=== PATIENT | female | born 1975 | race Caucasian/White ===

== ENCOUNTER → 2018-05-02 08:14 | Outpatient (CLI) | payer OTHER, SELFPAY ==
--- NOTE | 2018-05-02 08:16 | BI_ITS ---
MAMMOGRAPHY - BILATERAL SCREENING 3-D LEE SYNTHESIS REASON FOR EXAM: Female, 42 years old. Bilateral Screening 3-D tomosynthesis PERTINENT HISTORY: No significant family history. TECHNIQUE: 2-D mammograms and 3-D Lee synthesis of the breast (s) were performed. CAD was performed. COMPARISON: 04/03/2017 FINDINGS: The breast composition is composed of scattered fibroglandular density. Scattered benign calcifications are seen. No dense spiculated masses or suspicious microcalcifications are identified. No architectural distortion is identified. There is no skin thickening or retraction. There has been no significant change since the prior study. BI/SCREENING MAMM (CAD), BILAT IMPRESSION: No mammographic signs of malignancy. Routine yearly mammograms recommended. ASSESSMENT CATEGORY: BIRADS Category 1: Negative. A letter regarding these results will be sent to the patient by the facility within 30 days. FOLLOW UP RECOMMENDATION: Yearly follow up mammogram recommended. (A) Approximately 10% of breast cancers are not detected by mammography. A normal mammogram should not delay biopsy of a clinically suspicious abnormality. Electronically Signed: Jeramy Chacon MD at 11:33 EDT , Service support ,
== END ==
PROVIDERS: Family Provider Family Medicine; PCP Family Medicine; Visit Provider Obstetrics & Gynecology
DX: Z12.31 Encounter for screening mammogram for malignant neoplasm of breast (principal)
CPT/HCPCS: 77063; 77067

== ENCOUNTER → 2018-05-16 08:22 | Outpatient (CLI) | payer OTHER, SELFPAY ==
[2018-05-16 09:40] LABS: Absolute Lymphocyte Count 3.07 X10^3/ul (0.83-4.51); Absolute Neutrophil Count 4.6 X10^3/uL (2.0-7.7); Basophil# 0.04 X10^3/uL; Basophil% 0.4 % (0-1); Eosinophil# 0.46 X10^3/uL; Eosinophils% 5.2 % (0-5); Hematocrit 35.5 % (37-47); Hemoglobin 10.1 g/dl (12.0-15.0); Lymphocyte # 3.07 X10^3/ul (4.0); Lymphocyte % 34.5 % (19-41); Mean Corp Hgb Conc 28.5 g/gl (32-36); Mean Corpuscular Hgb 20.6 pg (27.0-32.0); Mean Corpuscular Volume 72.3 fL (81-99); Mean Platelet Vol. 10.3 fl (6.2-12.0); Monocyte# 0.73 X10^3/uL; Monocyte% 8.2 % (0-10); Neutrophil # 4.59 X10^3/uL (2.7-7.7); Neutrophil % 51.6 % (47-70); Platelet Count 353 K/mm3 (150-450); RBC Distribution Width CV 15.6 % (11.6-14.6); RBC Distribution Width SD 41.2 fl (35.1-43.9); Red Blood Count 4.91 M/mm3 (4.2-5.4); White Blood Count 8.9 K/mm3 (4.4-11.0)
[2018-05-16 09:44] LABS: Differential Indicated SCAN CRITERIA MET; POSITIVE COUNT NO; POSITIVE DIFFERENTIAL NO; POSITIVE MORPHOLOGY YES
[2018-05-16 09:52] LABS: Valproic Acid (Depakene) Level 91 ug/mL (50-100)
[2018-05-16 10:05] LABS: AST(SGOT) 17 U/L (15-37); Alanine Aminotransfer ALT/SGPT 17 U/L (13-56); Albumin, Serum 3.1 g/dL (3.2-5.0); Alkaline Phosphatase 41 U/L (45-117); Bilirubin, Direct 0.11 mg/dL (0.00-0.30); Globulin 4.6 g/dL (2.2-4.2); Protein, Total 7.7 g/dL (6.4-8.2)
== END ==
PROVIDERS: Family Provider Family Medicine; PCP Family Medicine; Visit Provider Psychiatry & Neurology Neurology
DX: G25.1 Drug-induced tremor (principal); G40.B09 Juvenile myoclonic epilepsy, not intractable, without status epilepticus
CPT/HCPCS: 36415; 80076; 80164; 85025

== ENCOUNTER → 2018-06-17 17:15 | Outpatient (CLI) | payer OTHER, SELFPAY ==
[2018-06-17 18:01] LABS: Hematocrit 32.9 % (37-47); Hemoglobin 9.5 g/dl (12.0-15.0); Immature Platelet Fraction 2.1 % (1.0-7.9); Mean Corp Hgb Conc 28.9 g/gl (32-36); Mean Corpuscular Volume 72.8 fL (81-99); Mean Platelet Vol. 9.9 fl (6.2-12.0); Platelet Count 310 K/mm3 (150-450); RBC Distribution Width CV 15.5 % (11.6-14.6); RBC Distribution Width SD 41.1 fl (35.1-43.9); RET-HE 19.7 pg (30-35); Red Blood Count 4.52 M/mm3 (4.2-5.4); Reticulocyte Count 1.31 % (0.5-1.5); White Blood Count 9.4 K/mm3 (4.4-11.0)
[2018-06-17 18:02] LABS: Scan Indicated on CBC? Y/N YES- FLAGS NOTED
[2018-06-17 18:30] LABS: Vitamin B12 422 pg/mL (211-911)
[2018-06-17 18:31] LABS: Differential Comment SCANNED
[2018-06-17 18:38] LABS: Ferritin 3 ng/mL (8-252); Iron 15 ug/dL (50-170); Iron Binding Capacity,Total 583 ug/dL (250-450)
== END ==
PROVIDERS: Family Provider Family Medicine; PCP Family Medicine; Visit Provider Family Medicine
DX: D64.9 Anemia, unspecified (principal)
CPT/HCPCS: 36415; 82607; 82728; 83540; 83550; 85027; 85045

== ENCOUNTER → 2018-09-13 13:44 | Outpatient (CLI) | payer OTHER, SELFPAY ==
[2018-09-13 16:15] LABS: Hematocrit 40.6 % (37-47); Mean Corpuscular Hgb 29.1 pg (27.0-32.0); Mean Platelet Vol. 11.9 fl (6.2-12.0); Platelet Count 207 K/mm3 (150-450); RBC Distribution Width CV 14.3 % (11.6-14.6); RBC Distribution Width SD 43.5 fl (35.1-43.9); RET-HE 32.8 pg (30-35); Red Blood Count 4.46 M/mm3 (4.2-5.4); Reticulocyte Count 1.15 % (0.5-1.5); White Blood Count 7.8 K/mm3 (4.4-11.0)
[2018-09-13 16:29] LABS: Scan Indicated on CBC? Y/N NO
[2018-09-13 16:37] LABS: Ferritin 29 ng/mL (8-252); Iron 57 ug/dL (50-170); Iron Binding Capacity,Total 385 ug/dL (250-450); PERCENT IRON SATURATION 14.8 % (15.0-55.0)
== END ==
PROVIDERS: Family Provider Family Medicine; PCP Family Medicine; Referring Provider Family Medicine; Visit Provider Family Medicine
DX: D64.9 Anemia, unspecified (principal)
CPT/HCPCS: 82728; 83540; 83550; 85027; 85045

== ENCOUNTER → 2019-04-15 | Outpatient (CLI) | payer OTHER, SELFPAY ==
--- NOTE | 2019-04-15 08:05 | RAD_ITS ---
STUDY: X-RAY - ESOPHAGUS (BARIUM SWALLOW) WITH FLUOROSCOPY REASON FOR EXAM: Female, 43 years old. Dysphagia for solids. Vomiting. TECHNIQUE: 14 view(s) of the esophagus were obtained following swallowing of barium. FLUOROSCOPY TIME (if supplied): (0:43) minutes/seconds COMPARISON: None. FINDINGS: There is no demonstrated esophageal foreign body. There is no demonstrated stricture or mucosal abnormality. Small hiatal hernia with no evidence of gastroesophageal reflux. The patient ingested a 12 mm tablet of barium.The tablet is trapped in the distal esophagus. Normal visualized aortic arch and descending thoracic aorta. Normal visualized pulmonary parenchyma. Normal visualized osseous structures of the thorax. RAD/Esophagus Only IMPRESSION: Small sliding hiatal hernia without gastroesophageal reflux. The 12 mm tablet of barium is trapped in the distal esophagus. Electronically Signed: Jerzy Barnhart, at 15:52 EDT , Service support ,
== END | disposition home or self-care (01) ==
LOC: RAD 08:01
PROVIDERS: Family Provider Family Medicine; PCP Family Medicine; Referring Provider Family Medicine; Visit Provider Family Medicine
DX: R13.10 Dysphagia, unspecified (principal)
CPT/HCPCS: 74220

== ENCOUNTER → 2019-05-05 | Outpatient (CLI) | payer OTHER, SELFPAY ==
--- NOTE | 2019-05-05 06:56 | BI_ITS ---
MAMMOGRAPHY - BILATERAL SCREENING REASON FOR EXAM: Female, 43 years old. Routine annual screening examination. PERTINENT HISTORY: Non-contributory. TECHNIQUE: Digital bilateral breast lee (3D mammographic acquisition) in the CC and MLO projections. 2-D mediolateral oblique (MLO) and craniocaudad (CC) views of both breasts were obtained. CAD: Full Field Digital Mammography with Computer Added Detection was performed. COMPARISON: Comparison is made with prior study dated May 02, 2018 and April 03, 2017. FINDINGS: Breast Composition: The breasts are heterogeneously dense, which may obscure small masses. There are no dominant masses or suspicious calcifications. Stable small benign-appearing bilateral axillary lymph nodes. Stable 4.7 mm well-defined nodule in the axillary region of the left breast suggestive of a small lymph node. No other significant abnormalities are identified. There has been no significant change since the prior study. BI/SCREEN MAMM (CAD) W/LEE BILAT IMPRESSION: Stable bilateral screening mammogram. Yearly follow-up mammogram recommended. (A) ASSESSMENT CATEGORY: BIRADS Category 2: Benign. A letter regarding these results will be sent to the patient by the facility within 30 days. Approximately 10% of breast cancers are not detected by mammography. A normal mammogram should not delay biopsy of a clinically suspicious abnormality. [id number] Electronically Signed: Jerzy Barnhart, at 8:59 EDT , Service support ,
== END | disposition home or self-care (01) ==
PROVIDERS: Family Provider Family Medicine; PCP Family Medicine; Referring Provider Obstetrics & Gynecology; Visit Provider Obstetrics & Gynecology
DX: Z12.31 Encounter for screening mammogram for malignant neoplasm of breast (principal)
CPT/HCPCS: 77063; 77067

== ENCOUNTER → 2019-05-19 07:53 | Outpatient (CLI) | payer OTHER, SELFPAY ==
[2019-05-19 08:47] LABS: Absolute Lymphocyte Count 3.31 X10^3/uL (0.83-4.51); Absolute Neutrophil Count 2.8 X10^3/uL (2.0-7.7); Basophil# 0.08 X10^3/uL; Basophil% 1.1 % (0-1); Eosinophil# 0.54 X10^3/uL; Eosinophils% 7.5 % (0-5); Hematocrit 42.6 % (37-47); Hemoglobin 13.5 g/dL (12.0-15.0); Lymphocyte # 3.31 X10^3/ul (4.0); Lymphocyte % 45.8 % (19-41); Mean Corp Hgb Conc 31.7 g/dL (32-36); Mean Corpuscular Hgb 29.2 pg (27.0-32.0); Mean Platelet Vol. 11.3 fl (6.2-12.0); Monocyte# 0.53 X10^3/uL; Monocyte% 7.3 % (0-10); NRBC Flagged by Analyzer 0 % (0-5); Neutrophil # 2.76 X10^3/uL (2.7-7.7); Neutrophil % 38.2 % (47-70); Platelet Count 200 K/mm3 (150-450); RBC Distribution Width CV 12.3 % (11.6-14.6); RBC Distribution Width SD 41.7 fl (35.1-43.9); Red Blood Count 4.63 M/mm3 (4.2-5.4); White Blood Count 7.2 K/mm3 (4.4-11.0)
[2019-05-19 09:14] LABS: AST(SGOT) 19 U/L (15-37); Alanine Aminotransfer ALT/SGPT 18 U/L (13-56); Albumin, Serum 3.2 g/dL (3.2-5.0); Alkaline Phosphatase 37 U/L (45-117); Bilirubin, Direct 0.11 mg/dL (0.00-0.30); Globulin 3.9 g/dL (2.2-4.2); Protein, Total 7.1 g/dL (6.4-8.2)
[2019-05-19 09:18] LABS: Valproic Acid (Depakene) Level 93 ug/mL (50-100)
== END ==
PROVIDERS: Family Provider Family Medicine; PCP Family Medicine; Referring Provider Psychiatry & Neurology Neurology; Visit Provider Psychiatry & Neurology Neurology
DX: G40.B09 Juvenile myoclonic epilepsy, not intractable, without status epilepticus (principal)
CPT/HCPCS: 36415; 80076; 80164; 85025

== ENCOUNTER → 2019-05-23 | Outpatient (CLI) | payer OTHER, SELFPAY ==
--- NOTE | 2019-05-23 | EGD_PTH ---
PATIENT: AVINASH WILLSON LOC: [facility] U#:[id number] AGE/SX: 43/F ROOM: RE05/23/[address]: Dr. Axel Higgins MD : 1975 BED: DIS: 05/23/2019 SPEC #: [id number] RECD: 05/23/19 15:22 STATUS: YUMIKO REKrystyna #: [id number] URIEL: 05/23/19 00:[address]: Axel Higgins DEPT: SURGICAL PATHOLOGY RECD BY: Lucy Millan ENTERED: 05/26/19 08:39 SP TYPE: EGD BIOPSY OT DR: Dr. Rakesh Castillo MD [facility] Tissues: Esophageal mucous membrane Procedures: Surgery Specimen Level IV HEADER OPERATION: EGD with biopsy/dilatation PRE-OP DIAGNOSIS: Dysphasia TISSUE SUBMITTED: Distal esophageal biopsies, rule out EE MICROSCOPIC DIAGNOSIS Distal esophageal biopsy: Fragments of squamous epithelium and mucosa with changes consistent with eosinophilic esophagitis. Moderate chronic inflammation. See comment. RADHA:clark 05/27/19 COMMENT Increased number of eosinophils (more than 20 per high power field) noted consistent with eosinophilic esophagitis. MICROSCOPIC DESCRIPTION Slides are reviewed. GROSS DESCRIPTION Received in fixative is one container labeled with the patient's name and designated esophageal biopsy. The specimen consists of multiple irregular fragments of light milan soft tissue that in aggregate measure 1.5 x 0.8 x 0.1 cm. The specimen is totally submitted in one cassette. / RADHA:clark 05/26/19 TC:3 CPT: [id number]
== END | disposition home or self-care (01) ==
LOC: LABSPEC 15:48
PROVIDERS: Family Provider Family Medicine; PCP Family Medicine; Referring Provider Internal Medicine Gastroenterology; Visit Provider Internal Medicine Gastroenterology
DX: R13.10 Dysphagia, unspecified (principal)
CPT/HCPCS: 88305

== ENCOUNTER → 2020-06-01 08:37 | Outpatient (CLI) | payer OTHER, SELFPAY ==
[2020-06-01 14:02] LABS: Cholesterol 210 mg/dL (200); High Density Lipoprotein 75 mg/dL; Triglycerides 156 mg/dL; Very Low Density Lipoprotein 31 mg/dL (5-40)
[2020-06-01 14:06] LABS: Hemoglobin A1c 5.3 % (3.8-5.6)
== END ==
PROVIDERS: PCP Family Medicine; Visit Provider Obstetrics & Gynecology
DX: Z13.1 Encounter for screening for diabetes mellitus (principal); Z13.220 Encounter for screening for lipoid disorders
CPT/HCPCS: 36415; 80061; 83036

== ENCOUNTER → 2020-06-03 | Outpatient (CLI) | payer OTHER, SELFPAY ==
--- NOTE | 2020-06-03 07:05 | BI_ITS ---
MAMMOGRAPHY - BILATERAL SCREENING REASON FOR EXAM: Female, 44 years old. Routine annual screening examination. PERTINENT HISTORY: Non-contributory. TECHNIQUE: Digital bilateral breast lee (3D mammographic acquisition) in the CC and MLO projections. 2-D mediolateral oblique (MLO) and craniocaudad (CC) views of both breasts were obtained. CAD: Full Field Digital Mammography with Computer Added Detection was performed. COMPARISON: Comparison is made with prior examination dated 05/05/2019 and 05/02/2018. FINDINGS: Breast Composition: The breasts are heterogeneously dense, which may obscure small masses. There are no dominant masses or suspicious calcifications. Stable 5 mm well-defined nodule in the axillary region of the left breast this most likely represents a small lymph node. No other significant abnormalities are identified. There has been no significant change since the prior study. BI/SCREEN MAMM (CAD) W/LEE BILAT IMPRESSION: Stable bilateral screening mammogram. Yearly follow-up mammogram recommended. (A) ASSESSMENT CATEGORY: BIRADS Category 2: Benign. A letter regarding these results will be sent to the patient by the facility within 30 days. Approximately 10% of breast cancers are not detected by mammography. A normal mammogram should not delay biopsy of a clinically suspicious abnormality. [id number] Electronically Signed: Jerzy Barnhart, at 8:31 EDT , Service support ,
== END | disposition home or self-care (01) ==
LOC: OPBI 07:02
PROVIDERS: PCP Family Medicine; Referring Provider Obstetrics & Gynecology; Visit Provider Obstetrics & Gynecology
DX: Z12.31 Encounter for screening mammogram for malignant neoplasm of breast (principal)
CPT/HCPCS: 77063; 77067

== ENCOUNTER → 2020-07-07 | Outpatient (CLI) | payer OTHER, SELFPAY | END | disposition home or self-care (01) | LOC: MTDU 07-09 11:46 | PROVIDERS: PCP Family Medicine; Referring Provider Internal Medicine Gastroenterology; Visit Provider Internal Medicine Gastroenterology | DX: Z11.59 Encounter for screening for other viral diseases (principal) | CPT/HCPCS: 87635; C9803; U0003 ==

== ENCOUNTER → 2020-07-22 | Outpatient (CLI) | payer OTHER, SELFPAY ==
[2020-07-22 08:32] LABS: Absolute Lymphocyte Count 3.21 X10^3/uL (0.83-4.51); Absolute Neutrophil Count 5.3 X10^3/uL (2.0-7.7); Basophil# 0.07 X10^3/uL; Basophil% 0.7 % (0-1); Eosinophil# 0.12 X10^3/uL; Eosinophils% 1.3 % (0-5); Hematocrit 39.7 % (37-47); Lymphocyte # 3.21 X10^3/ul (4.0); Mean Corp Hgb Conc 30.2 g/dL (32-36); Mean Corpuscular Hgb 26.3 pg (27.0-32.0); Mean Corpuscular Volume 87.1 fL (81-99); Mean Platelet Vol. 11.6 fl (6.2-12.0); Monocyte% 7.4 % (0-10); NRBC Flagged by Analyzer 0 % (0-5); Neutrophil # 5.32 X10^3/uL (2.7-7.7); Neutrophil % 56.4 % (47-70); Platelet Count 336 K/mm3 (150-450); RBC Distribution Width CV 14.1 % (11.6-14.6); RBC Distribution Width SD 43.7 fl (35.1-43.9); Red Blood Count 4.56 M/mm3 (4.2-5.4); White Blood Count 9.4 K/mm3 (4.4-11.0)
[2020-07-22 09:25] LABS: AST(SGOT) 13 U/L (15-37); Alanine Aminotransfer ALT/SGPT 18 U/L (13-56); Albumin, Serum 3.1 g/dL (3.2-5.0); Alkaline Phosphatase 44 U/L (45-117); Bilirubin, Direct 0.09 mg/dL (0.00-0.30); Globulin 4.2 g/dL (2.2-4.2); Protein, Total 7.3 g/dL (6.4-8.2)
[2020-07-22 09:27] LABS: Valproic Acid (Depakene) Level 82 ug/mL (50-100)
== END | disposition home or self-care (01) ==
PROVIDERS: PCP Family Medicine; Referring Provider Psychiatry & Neurology Neurology; Visit Provider Psychiatry & Neurology Neurology
DX: G25.1 Drug-induced tremor (principal); G40.B09 Juvenile myoclonic epilepsy, not intractable, without status epilepticus; Z79.899 Other long term (current) drug therapy
CPT/HCPCS: 36415; 80076; 80164; 85025

== ENCOUNTER → 2021-07-25 | Outpatient (CLI) | payer OTHER, SELFPAY ==
[2021-07-29 13:25] LABS: HPV APTIMA, High Risk Negative (Negative)
[2021-07-29 13:35] LABS: HPV Reflexed? YES, CHARGE PATIENT
== END | disposition home or self-care (01) ==
LOC: LABSPEC 16:15
PROVIDERS: PCP Family Medicine; Visit Provider Obstetrics & Gynecology
DX: Z12.4 Encounter for screening for malignant neoplasm of cervix (principal)
CPT/HCPCS: 87624; 88175; G0145

== ENCOUNTER → 2021-08-12 06:59 | Outpatient (CLI) | payer OTHER, SELFPAY ==
--- NOTE | 2021-08-12 07:01 | BI_ITS ---
MAMMOGRAPHY - BILATERAL SCREENING REASON FOR EXAM: Female, 45 years old. Routine annual screening examination. PERTINENT HISTORY: Non-contributory. TECHNIQUE: Digital bilateral breast lee (3D mammographic acquisition) in the CC and MLO projections. 2-D mediolateral oblique (MLO) and craniocaudad (CC) views of both breasts were obtained. CAD: Full Field Digital Mammography with Computer Added Detection was performed. COMPARISON: Comparison is made with prior examination dated 06/03/2020 and 05/05/2019. FINDINGS: Breast Composition: The breasts are heterogeneously dense, which may obscure small masses. There are no dominant masses or suspicious calcifications. Stable benign-appearing bilateral axillary lymph nodes. No other significant abnormalities are identified. There has been no significant change since the prior study. BI/SCRN MAMM (CAD)W/LEE BILAT IMPRESSION: Stable bilateral screening mammogram. Yearly follow-up mammogram recommended. (A) ASSESSMENT CATEGORY: BIRADS Category 2: Benign. A letter regarding these results will be sent to the patient by the facility within 30 days. Approximately 10% of breast cancers are not detected by mammography. A normal mammogram should not delay biopsy of a clinically suspicious abnormality. [id number] Electronically Signed: Jerzy Barnhart MD at 8:38 EDT , Service support ,
== END ==
PROVIDERS: PCP Family Medicine; Referring Provider Obstetrics & Gynecology; Visit Provider Obstetrics & Gynecology
DX: Z12.31 Encounter for screening mammogram for malignant neoplasm of breast (principal)
CPT/HCPCS: 77063; 77067

== ENCOUNTER → 2021-10-06 12:16 | Outpatient (CLI) | payer OTHER, SELFPAY ==
[2021-10-06 13:00] LABS: Absolute Lymphocyte Count 3.71 X10^3/uL (0.83-4.51); Absolute Neutrophil Count 6.1 X10^3/uL (2.0-7.7); Basophil# 0.07 X10^3/uL; Basophil% 0.6 % (0-1); Eosinophils% 1.8 % (0-5); Hematocrit 39.4 % (37-47); Hemoglobin 12.4 g/dL (12.0-15.0); Lymphocyte # 3.71 X10^3/ul (0.83-4.51); Lymphocyte % 34.1 % (19-41); Mean Corp Hgb Conc 31.5 g/dL (32-36); Mean Corpuscular Volume 85.8 fL (81-99); Mean Platelet Vol. 10.9 fl (6.2-12.0); Monocyte# 0.79 X10^3/uL; Monocyte% 7.3 % (0-10); NRBC Flagged by Analyzer 0 % (0-5); Neutrophil # 6.08 X10^3/uL (2.7-7.7); Neutrophil % 55.9 % (47-70); Platelet Count 294 K/mm3 (150-450); RBC Distribution Width CV 13.1 % (11.6-14.6); RBC Distribution Width SD 40.3 fl (35.1-43.9); Red Blood Count 4.59 M/mm3 (4.2-5.4); White Blood Count 10.9 K/mm3 (4.4-11.0)
[2021-10-06 13:36] LABS: Valproic Acid (Depakene) Level 72 ug/mL (50-100)
[2021-10-06 13:39] LABS: AST(SGOT) 14 U/L (15-37); Alanine Aminotransfer ALT/SGPT 25 U/L (13-56); Alkaline Phosphatase 45 U/L (45-117); Globulin 4.4 g/dL (2.2-4.2); Protein, Total 7.4 g/dL (6.4-8.2)
== END ==
PROVIDERS: PCP Family Medicine; Visit Provider Psychiatry & Neurology Neurology
DX: G40.B09 Juvenile myoclonic epilepsy, not intractable, without status epilepticus (principal)
CPT/HCPCS: 36415; 80076; 80164; 85025

== ENCOUNTER → 2022-08-28 | Outpatient (CLI) | payer OTHER, SELFPAY ==
--- NOTE | 2022-08-28 07:15 | BI_ITS ---
MAMMOGRAPHY - BILATERAL SCREENING REASON FOR EXAM: Female, 46 years old. Routine annual screening examination. PERTINENT HISTORY: Non-contributory. TECHNIQUE: Digital bilateral breast lee (3D mammographic acquisition) in the CC and MLO projections. 2-D mediolateral oblique (MLO) and craniocaudad (CC) views of both breasts were obtained. CAD: Full Field Digital Mammography with Computer Added Detection was performed. COMPARISON: Mammogram from 08/12/2021, 06/03/2020. FINDINGS: Breast Composition: The breasts are heterogeneously dense, which may obscure small masses. There are no dominant masses or suspicious calcifications. Stable benign-appearing bilateral lymph nodes. Stable benign-appearing scattered calcifications. No other significant abnormalities are identified. There has been no significant change since the prior study. BI/SCRN MAMM (CAD)W/LEE BILAT IMPRESSION: Stable bilateral screening mammogram. Yearly follow-up mammogram recommended. (A) ASSESSMENT CATEGORY: BIRADS Category 2: Benign. A letter regarding these results will be sent to the patient by the facility within 30 days. Approximately 10% of breast cancers are not detected by mammography. A normal mammogram should not delay biopsy of a clinically suspicious abnormality. Electronically Signed: Antonio Wilson, at 11:58 EST ,
== END | disposition home or self-care (01) ==
LOC: OPBI 07:13
PROVIDERS: PCP Family Medicine; Visit Provider Obstetrics & Gynecology
DX: Z12.31 Encounter for screening mammogram for malignant neoplasm of breast (principal)
CPT/HCPCS: 77063; 77067

== ENCOUNTER → 2022-10-25 | Outpatient (CLI) | payer OTHER, SELFPAY ==
[2022-10-25 17:03] LABS: Absolute Lymphocyte Count 4.14 X10^3/uL (0.83-4.51); Absolute Neutrophil Count 3.7 X10^3/uL (2.0-7.7); Basophil# 0.06 X10^3/uL; Basophil% 0.7 % (0-1); Eosinophil# 0.08 X10^3/uL; Eosinophils% 0.9 % (0-5); Hematocrit 32.9 % (37-47); Hemoglobin 9.5 g/dL (12.0-15.0); Lymphocyte # 4.14 X10^3/ul (0.83-4.51); Lymphocyte % 45.6 % (19-41); Mean Corp Hgb Conc 28.9 g/dL (32-36); Mean Corpuscular Hgb 20.9 pg (27.0-32.0); Mean Corpuscular Volume 72.3 fL (81-99); Mean Platelet Vol. 10.1 fl (6.2-12.0); Monocyte# 1.04 X10^3/uL; Monocyte% 11.5 % (0-10); NRBC Flagged by Analyzer 0 % (0-5); Neutrophil # 3.74 X10^3/uL (2.7-7.7); Neutrophil % 41.1 % (47-70); Platelet Count 350 K/mm3 (150-450); RBC Distribution Width CV 15.8 % (11.6-14.6); RBC Distribution Width SD 40.2 fl (35.1-43.9); Red Blood Count 4.55 M/mm3 (4.2-5.4); White Blood Count 9.1 K/mm3 (4.4-11.0)
[2022-10-25 17:47] LABS: Valproic Acid (Depakene) Level 60 ug/mL (50-100)
[2022-10-25 17:48] LABS: AST(SGOT) 16 U/L (15-37); Alanine Aminotransfer ALT/SGPT 16 U/L (13-56); Albumin, Serum 3.1 g/dL (3.2-5.0); Alkaline Phosphatase 36 U/L (45-117); Bilirubin, Direct 0.09 mg/dL (0.00-0.30); Globulin 4.3 g/dL (2.2-4.2); Protein, Total 7.4 g/dL (6.4-8.2)
== END | disposition home or self-care (01) ==
LOC: LAB 16:39
PROVIDERS: PCP Family Medicine; Visit Provider Physician Assistant
DX: G40.B09 Juvenile myoclonic epilepsy, not intractable, without status epilepticus (principal)
CPT/HCPCS: 36415; 80076; 80164; 85025

== ENCOUNTER → 2024-07-21 | Outpatient (CLI) | payer OTHER, SELFPAY ==
--- NOTE | 2024-07-21 07:16 | BI_ITS ---
MAMMOGRAPHY - BILATERAL SCREENING 3-D TOMOSYNTHESIS REASON FOR EXAM: Female, 48 years old. SCREENING PERTINENT HISTORY: No significant family history. TECHNIQUE: 2-D mammograms and 3-D Tomosynthesis of the breast (s) were performed. CAD was performed. COMPARISON: 08/28/2022 FINDINGS: The breast composition is heterogeneously dense that can obscure small breast masses. Scattered benign calcifications are seen. No dense spiculated masses or suspicious microcalcifications are identified. No architectural distortion is identified. There is no skin thickening or retraction. There has been no significant change since the prior study. BI/SCRN MAMM (CAD)W/LEE BILAT IMPRESSION: No mammographic signs of malignancy. Routine yearly mammograms recommended. ASSESSMENT CATEGORY: BIRADS Category 1: Negative. A letter regarding these results will be sent to the patient by the facility within 30 days. FOLLOW UP RECOMMENDATION: Yearly follow up mammogram recommended. (A) Approximately 10% of breast cancers are not detected by mammography. A normal mammogram should not delay biopsy of a clinically suspicious abnormality. Electronically Signed: Robin Heredia MD at 8:10 EDT ,
== END | disposition home or self-care (01) ==
LOC: OPBI 07:13
PROVIDERS: PCP Family Medicine; Referring Provider Advanced Practice Midwife; Visit Provider Advanced Practice Midwife
DX: Z12.31 Encounter for screening mammogram for malignant neoplasm of breast (principal)
CPT/HCPCS: 77063; 77067

== ENCOUNTER → 2025-02-12 | Outpatient (CLI) | payer OTHER, SELFPAY ==
[2025-02-12 08:15] LABS: Absolute Lymphocyte Count 3.28 X10^3/uL (0.83-4.51); Absolute Neutrophil Count 2.9 X10^3/uL (2.0-7.7); Basophil# 0.07 X10^3/uL; Eosinophil# 0.11 X10^3/uL; Eosinophils% 1.6 % (0-5); Hematocrit 35.6 % (37-47); Hemoglobin 10.8 g/dL (12.0-15.0); Lymphocyte # 3.28 X10^3/ul (0.83-4.51); Lymphocyte % 46.9 % (19-41); Mean Corp Hgb Conc 30.3 g/dL (32-36); Mean Corpuscular Hgb 22.6 pg (27.0-32.0); Mean Corpuscular Volume 74.5 fL (81-99); Mean Platelet Vol. 10.9 fl (6.2-12.0); Monocyte# 0.58 X10^3/uL; Monocyte% 8.3 % (0-10); NRBC Flagged by Analyzer 0 % (0-5); Neutrophil # 2.94 X10^3/uL (2.7-7.7); Neutrophil % 41.9 % (47-70); Platelet Count 324 K/mm3 (150-450); RBC Distribution Width CV 16.4 % (11.6-14.6); RBC Distribution Width SD 44.2 fl (35.1-43.9); Red Blood Count 4.78 M/mm3 (4.2-5.4)
[2025-02-12 08:57] LABS: Valproic Acid (Depakene) Level 77 ug/mL (50-100)
[2025-02-12 09:00] LABS: ALB/GLOB Ratio 1.3 RATIO (0.9-2.4); AST(SGOT) 111 U/L (<=31); Alanine Aminotransfer ALT/SGPT 109 U/L (<=34); Albumin, Serum 4.4 g/dL (3.5-5.0); Alkaline Phosphatase 89 U/L (35-104); Anion Gap 14 (5-15); BUN 10 mg/dL (4-19); BUN/Creat Ratio 18.5 RATIO (10-20); Carbon Dioxide 23.5 mmol/L (21.0-32.0); Chloride 104 mmol/L (98-108); Creatinine, Serum 0.56 mg/dL (0.70-1.20); EST Glomerular Filtration Rate 111 (>60); Globulin 3.3 g/dL (2.2-4.2); Glucose 161 mg/dL (70-99); Potassium 4.1 mmol/L (3.3-5.1); Protein, Total 7.7 g/dL (5.9-8.4); Sodium Level 141 mmol/L (133-145); Total Bilirubin 0.57 mg/dL (0.00-1.30)
== END | disposition home or self-care (01) ==
PROVIDERS: PCP Family Medicine; Referring Provider Psychiatry & Neurology Neurology; Visit Provider Psychiatry & Neurology Neurology
DX: G40.B09 Juvenile myoclonic epilepsy, not intractable, without status epilepticus (principal)
CPT/HCPCS: 36415; 80053; 80164; 85025

== ENCOUNTER → 2025-05-14 | Outpatient (CLI) | payer OTHER, SELFPAY ==
--- OUTSIDE RECORDS SUMMARY | 2025-05-14 07:06 | XMS RPT_ITS | CCD ---
Author Organization [facility] Inform ion Partnership [facility] Care Team Providers Care Legal Recruiter Name Role Phone Margy Castillo MD Primary Care Provider CARLY JACKSON Attending Unavailable KARYN ARRIAZA Referring Unavailable MARGY CASTILLO Primary Care Unavailkirsten Castillo MD, Margy Lim Primary Care Provider Jonathan PATEL, Dr. Cameron Primary Care Provider Jairo PATEL, Dr. Meza Attending Provider Unavailab Barbara PATEL, Dr. Meza Referring Provider Unavailab Derrick Jimenez Referring Unavailable Margy Castillo Primary Care Unavailable Derrick Gill Attending Unavailable Margy Castillo Primary Care Unavailable Derrick Gill Attending Unavailable Margy Castillo Primary Care Unavailable Karyn Arriaza Attending Unavailable Karyn Arriaza Referring Unavailable Allergies Allergy Classification Reported Allergen(s) Allergy Type Date of Onset Reaction(s) Facility (4 sources) Cat; Translations: [CATS] Propensity to adverse reactions 06-24-2002 [facility] Work Phone (unformatted) : [phone] (4 sources) Dust; Translations: [DUST] Propensity to adverse reactions 06-24-2002 [facility] Work Phone (unformatted) : [phone] (4 sources) Mold Extract; Translations: [MOLD] Drug Allergy 12-02-2002 [facility] Work Phone: Medications Current Medications Medication Drug Class(es) Dates Sig (Normalized) Sig (Original) pantoprazole 40 mg delayed release oral tablet (3 sources) Proton Pump Inhibitor pantoprazole DR (PROTONIX) 40 mg tablet Active propranolol hydrochloride 60 mg oral tablet (3 sources) beta-Adrenergic Aishwarya propranolol (INDERAL) 60 mg tablet Active valproic acid 250 mg oral capsule (6 sources) Mood Stabilizer, Anti-epileptic Agent take 1 tablet by mouth every twenty-four hours divalproex ER (DEPAKOTE ER) 500 mg 24 hr tablet Take 1,000 mg by mouth. Active take 250 mg by mouth once daily, then take 1000 mg by mouth once daily divalproex sodium (DEPAKOTE ORAL) Take 2 50 mg by mouth once daily. Taking along with depakote 1,000 mg daily Active divalproex sodiu m (DEPAKOTE ORAL) Take by mouth. 0 Active Comment on above: Take by mouth. Take 1,000 mg by sonja th. Problems Active Problems Problem Classification Problem Date Documented Date Episodic/Chronic Epilepsy; convulsions (7 sources) Epilepsy; Translations: [Epilepsy, unspecified, not intractable, without status epilepticus] Onset: 12-02-2002 02-01-2004 Chronic Menopausal disorders (1 source) Postmenopausal state; Translations: [Hormone replacement therapy] 11-05-2024 Episodic Other liver diseases (1 source) Abnormal levels of other serum enzymes; Translations: [Abnormal levels of other serum enzymes] Onset: 02-18-2025 Episodic Past or Other Problems Problem Classification Problem Date Documented Da te Episodic/Chronic Hemorrhage during ; abruptio placenta; placenta previa (4 sources) Threatened miscarriage; Translations: [Threatened ] Onset: 12-30-2002 Resolved: 09-08-2003 04-17-2024 Episodic Other complications of (2 sources) High risk ; Translations: [Supervision of high risk , unspecified, unspecified trimester] Onset: 12-02-2002 Resolved: 09-08-2003 04-17-2024 Episodic Other screening for suspected conditions (not mental disorders or infectious disease) (4 sources) Cancer cervix screening status; Translations: [Encounter for screening for malignant neoplasm of cervix] Onset: 08-13-2024 11-09-2023 Episodic Results Test Name Value Interpretation Reference Range Facility Absolute lymphocyte countOrd ered By: Derrick Gill on 02-12-2025 Lymphocytes Auto (Unsp spec) [#/Vol] 3.28 10*3/uL 0.83-4.51 [facility] Absolute neutrophil countOrd ered By: Derrick Gill on 02-12-2025 Neutrophils (Bld) [#/Vol] 2.9 10*3/uL 2.0-7.7 [facility] Anion gap in Serum or Plasma Ordered By: Derrick Gill on 02-12-2025 Anion gap [Moles/Vol] 14 mmol/L 5-15 [facility] Automated lymphocyte count a s percentage of total leukocytesOrdered By: Derrick Gill on 02-12-2025 Lymphocytes/100 WBC Auto (Unsp spec) 46.9 % High 19-41 [facility] BUN/creatinine ratioOrdered By: Derrickmynor Gill on 02-12-2025 Urea nitrogen/Creatinine [Mass ratio] 18.5 mg/mg 10-20 [facility] Basophil percentageOrdered B y: Derrick Gill on 02-12-2025 Basophils/100 WBC (Bld) 1.0 % 0-1 [facility] Bilirubin, totalOrdered By: Derrick Gill on 02-12-2025 Bilirubin [Mass/Vol] 0.57 mg/dL Normal 0.00-1.30 [facility] Comment on above: Performed By: #### L 100.0100, L500.4050, L501.8100 #### [facility] [address] [place], [address] CBC W/Diff, Automatedon 05- Absolute Lymph 3.28 X10 3/uL Normal 0.83-4.51 [facility] Comment on above: Performed By: #### L 100.0100, L500.4050, L501.8100 #### [facility] [address] [place], [address] Absolute Neut 2.9 X10 3/uL Normal 2.0-7.7 [facility] Comment on above: Performed By: #### L 100.0100, L500.4050, L501.8100 #### [facility] [address] [place], [address] Basophils/100 WBC (Bld) 1.0 % Normal 0-1 [facility] Comment on above: Performed By: #### L 100.0100, L500.4050, L501.8100 #### [facility] [address] [place], [address] Eosinophils/100 WBC (Bld) 1.6 % Normal 0-5 [facility] Comment on above: Performed By: #### L 100.0100, L500.4050, L501.8100 #### [facility] [address] [place], [address] Erythrocyte distribution width (RBC) [Ratio] 16.4 % High 11.6-14.6 [facility] Comment on above: Performed By: #### L 100.0100, L500.4050, L501.8100 #### [facility] [address] [place], [address] Hematocrit (Bld) [Volume fraction] 35.6 % Low 37-47 [facility] Comment on above: Performed By: #### L 100.0100, L500.4050, L501.8100 #### [facility] [address] [place], [address] Hemoglobin (Bld) [Mass/Vol] 10.8 g/dL Low 12.0-15.0 [facility] Comment on above: Performed By: #### L 100.0100, L500.4050, L501.8100 #### [facility] [address] [place], [address] IG% 0.300 Normal 0.0-0.9 [facility] Comment on above: Result Comment: IG% - Immature Granulocytes (promyelocytes, myelocytes and metamyelocytes) > 1% indicates that a LEFT SHIFT is Present. Performed By: #### L 100.0100, L500.4050, L501.8100 #### [facility] [address] [place], [address] Lymphocytes/100 WBC (Bld) 46.9 % High 19-41 [facility] Comment on above: Performed By: #### L 100.0100, L500.4050, L501.8100 #### [facility] [address] [place], [address] MCH (RBC) [Entitic mass] 22.6 pg Low 27.0-32.0 [facility] Comment on above: Performed By: #### L 100.0100, L500.4050, L501.8100 #### [facility] [address] [place], [address] MCHC (RBC) [Mass/Vol] 30.3 g/dL Low 32-36 [facility] Comment on above: Performed By: #### L 100.0100, L500.4050, L501.8100 #### [facility] [address] [place], [address] MCV (RBC) [Entitic vol] 74.5 fL Low 81-99 [facility] Comment on above: Performed By: #### L 100.0100, L500.4050, L501.8100 #### [facility] [address] [place], [address] Monocytes/100 WBC (Bld) 8.3 % Normal 0-10 [facility] Comment on above: Performed By: #### L 100.0100, L500.4050, L501.8100 #### [facility] [address] [place], [address] Neutrophils/100 WBC (Bld) 41.9 % Low 47-70 [facility] Comment on above: Performed By: #### L 100.0100, L500.4050, L501.8100 #### [facility] [address] [place], [address] Nucleated RBC (Bld) [#/Vol] 0 10*3/uL Normal 0-5 [facility] Comment on above: Performed By: #### L 100.0100, L500.4050, L501.8100 #### [facility] [address] [place], [address] Platelet mean volume (Bld) [Entitic vol] 10.9 fL Normal 6.2-12.0 [facility] Comment on above: Performed By: #### L 100.0100, L500.4050, L501.8100 #### [facility] [address] [place], [address] Platelets (Bld) [#/Vol] 324 10*3/uL Normal 150-450 [facility] Comment on above: Performed By: #### L 100.0100, L500.4050, L501.8100 #### [facility] [address] [place], [address] RBC (Bld) [#/Vol] 4.78 10*6/uL Normal 4.2-5.4 [facility] Comment on above: Performed By: #### L 100.0100, L500.4050, L501.8100 #### [facility] [address] [place], [address] RDW SD 44.2 fl High 35.1-43.9 [facility] Comment on above: Performed By: #### L 100.0100, L500.4050, L501.8100 #### [facility] [address] [place], [address] WBC (Bld) [#/Vol] 7.0 10*3/uL Normal 4.4-11.0 [facility] Comment on above: Performed By: #### L 100.0100, L500.4050, L501.8100 #### [facility] [address] [place], [address] Carbon dioxide, total [Moles /volume] in Central venous bloodOrdered By: Derrick Gill on 02-12-2025 CO2 [Moles/Vol] 23.5 mmol/L Normal 21.0-32.0 [facility] Comment on above: Performed By: #### L 100.0100, L500.4050, L501.8100 #### [facility] [address] [place], [address] Chloride assayOrdered By: Jeffry Gill on 02-12-2025 Chloride [Moles/Vol] 104 mmol/L Normal 98-108 [facility] Comment on above: Performed By: #### L 100.0100, L500.4050, L501.8100 #### [facility] [address] [place], [address] Comprehensive Metabolic Prof ilon 02-12-2025 ALK PHOS 89 U/L Normal 35-104 [facility] Comment on above: Performed By: #### L 100.0100, L500.4050, L501.8100 #### [facility] [address] [place], [address] BUN/CRE 18.5 RATIO Normal 10-20 [facility] Comment on above: Performed By: #### L 100.0100, L500.4050, L501.8100 #### [facility] [address] [place], [address] GAP 14 Normal 5-15 [facility] Comment on above: Performed By: #### L 100.0100, L500.4050, L501.8100 #### [facility] [address] [place], [address] Potassium [Moles/Vol] 4.1 mmol/L Normal 3.3-5.1 [facility] Comment on above: Performed By: #### L 100.0100, L500.4050, L501.8100 #### [facility] [address] [place], [address] T PROT 7.7 g/dL Normal 5.9-8.4 [facility] Comment on above: Performed By: #### L 100.0100, L500.4050, L501.8100 #### [facility] [address] [place], [place], [id number] Comprehensive Metabolic Prof ilOrdered By: Derrick Gill on 02-12-2025 AST [Catalytic activity/Vol] 111 U/L High <=31 [facility] Comment on above: Performed By: #### L 100.0100, L500.4050, L501.8100 #### [facility] [address] [place], [address] Eosinophil percentageOrdered By: Derrick Gill on 02-12-2025 Eosinophils/100 WBC (Bld) 1.6 % 0-5 [facility] Erythrocyte distribution wid th ratioOrdered By: Derrick Gill on 02-12-2025 Erythrocyte distribution width (RBC) [Ratio] 16.4 % High 11.6-14.6 [facility] Erythrocyte distribution wid th standard deviationOrdered By: Derrick Gill on 02-12-2025 Erythrocyte distribution width (RBC) [Ratio] 44.2 fl High 35.1-43.9 [facility] Glomerular filtration rate ( GFR) estimation/1.73 sq m using serum, plasma, or whole bOrdered By: Derrick Gill on 02-12-2025 GFR/1.73 sq M.predicted among non-blacks MDRD (S/P/Bld) [Vol rate/Area] 111 mL/min/{1.73_m2} Normal >60 [facility] Comment on above: mL/min/1.73m2 CKD-EP I Creatinine Equation (2020) Result Comment: mL/m in/1.73m2 CKD-EPI Creatinine Equation (2020) Performed By: #### L 100.0100, L500.4050, L501.8100 #### [facility] [address] [place], [address] Hematocrit Auto (Bld) [Volum e fraction]Ordered By: Derrick Gill on 02-12-2025 Hematocrit (Bld) [Volume fraction] 35.6 % Low 37-47 [facility] Hemoglobin measurementOrdere d By: Derrick Gill on 02-12-2025 Hemoglobin (Bld) [Mass/Vol] 10.8 g/dL Low 12.0-15.0 [facility] Immature granulocytes/100 WB C Auto (Bld)Ordered By: Derrick Gill on 02-12-2025 Immature granulocytes/100 WBC (Bld) 0.300 % 0.0-0.9 [facility] Comment on above: IG% - Immature Granu locytes (promyelocytes, myelocytes and metamyelocytes) > 1% indicates that a LEFT SHIFT is Present. MCV (mean corpuscular volume ) determinationOrdered By: Derrick Gill on 02-12-2025 MCV (RBC) [Entitic vol] 74.5 fL Low 81-99 [facility] Mean corpuscular hemoglobin (MCH) determinationOrdered By: Derrick Gill on 02-12-2025 MCH (RBC) [Entitic mass] 22.6 pg Low 27.0-32.0 [facility] Mean corpuscular hemoglobin concentration (MCHC) determinationOrdered By: Derrick Gill on 02-12-2025 MCHC (RBC) [Mass/Vol] 30.3 g/dL Low 32-36 [facility] Mean platelet volume determi nationOrdered By: Derrick Gill on 02-12-2025 Platelet mean volume (Bld) [Entitic vol] 10.9 fL 6.2-12.0 [facility] Monocyte percentageOrdered B y: Derrick Gill on 02-12-2025 Monocytes/100 WBC (Bld) 8.3 % 0-10 [facility] Neutrophil percentageOrdered By: Derrick Gill on 02-12-2025 Neutrophils/100 WBC (Bld) 41.9 % Low 47-70 [facility] Nucleated red blood cell per centageOrdered By: Derrick Gill on 02-12-2025 Nucleated RBC/100 WBC (Bld) [Ratio] 0 % 0-5 [facility] Platelet countOrdered By: Jeffry Gill on 02-12-2025 Platelets (Bld) [#/Vol] 324 10*3/uL 150-450 [facility] Potassium measurement (mass/ volume)Ordered By: Derrick Gill on 02-12-2025 Potassium (Unsp spec) [Mass/Vol] 4.1 mmol/L 3.3-5.1 [facility] RBC Auto (Bld) [#/Vol]Ordere d By: Derrick Gill on 02-12-2025 RBC (Bld) [#/Vol] 4.78 10*6/uL 4.2-5.4 [facility] Serum creatinine measurement (mass/volume)Ordered By: Derrick Gill on 02-12-2025 Creatinine [Mass/Vol] 0.56 mg/dL Low 0.70-1.20 [facility] Comment on above: Performed By: #### L 100.0100, L500.4050, L501.8100 #### [facility] [address] [place], [address] Serum globulin measurementOr dered By: Derrick Gill on 02-12-2025 Globulin (S) [Mass/Vol] 3.3 g/dL Normal 2.2-4.2 [facility] Comment on above: Performed By: #### L 100.0100, L500.4050, L501.8100 #### [facility] [address] [place], [address] Serum glucose measurement (m ass/volume)Ordered By: Derrick Gill on 02-12-2025 Glucose [Mass/Vol] 161 mg/dL High 70-99 [facility] Comment on above: Performed By: #### L 100.0100, L500.4050, L501.8100 #### [facility] [address] [place], [address] Serum or plasma alanine gandhi otransferase (ALT) measurementOrdered By: Derrick Gill on 02-12-2025 ALT [Catalytic activity/Vol] 109 U/L High <=34 [facility] Comment on above: Performed By: #### L 100.0100, L500.4050, L501.8100 #### [facility] [address] [place], [address] Serum or plasma albumin emeka urement (mass/volume)Ordered By: Derrick Gill on 02-12-2025 Albumin [Mass/Vol] 4.4 g/dL Normal 3.5-5.0 [facility] Comment on above: Performed By: #### L 100.0100, L500.4050, L501.8100 #### [facility] [address] [place], [address] Serum or plasma albumin/glob ulin mass ratioOrdered By: Derrick Gill on 02-12-2025 Albumin/Globulin [Mass ratio] 1.3 {ratio} Normal 0.9-2.4 [facility] Comment on above: Performed By: #### L 100.0100, L500.4050, L501.8100 #### [facility] [address] [place], [address] Serum or plasma alkaline jer sphatase measurementOrdered By: Derrick Gill on 02-12-2025 ALP [Catalytic activity/Vol] 89 U/L 35-104 [facility] Serum or plasma calcium emeka urement (mass/volume)Ordered By: Derrick Gill on 02-12-2025 Calcium [Mass/Vol] 10.0 mg/dL Normal 7.6-11.0 [facility] Comment on above: Performed By: #### L 100.0100, L500.4050, L501.8100 #### [facility] [address] [place], [address] Serum or plasma urea nitroge n measurement (mass/volume)Ordered By: Derrick Gill on 02-12-2025 Urea nitrogen [Mass/Vol] 10 mg/dL Normal 4-19 [facility] Comment on above: Performed By: #### L 100.0100, L500.4050, L501.8100 #### [facility] [address] [place], [address] Serum or plasma valproate me asurement (mass/volume)Ordered By: Derrick Gill on 02-12-2025 Valproate [Mass/Vol] 77 ug/mL 50-100 [facility] Comment on above: Valproic Acid concen trations >100 ug/mL are potentially toxic. Sodium levelOrdered By: Mian Gill on 02-12-2025 Sodium [Moles/Vol] 141 mmol/L Normal 133-145 [facility] Comment on above: Performed By: #### L 100.0100, L500.4050, L501.8100 #### [facility] [address] [place], [place], [address] Total proteinOrdered By: Samir Gill on 02-12-2025 Protein [Mass/Vol] 7.7 g/dL 5.9-8.4 [facility] Valproic Acid (Depakene) Lev arjun 02-12-2025 VALPROIC ACID 77 ug/mL Normal 50-100 [facility] Comment on above: Result Comment: Valp roic Acid concentrations >100 ug/mL are potentially toxic. Performed By: #### L 100.0100, L500.4050, L501.8100 #### [facility] [address] [place], [place], [id number] White blood cell (WBC) count Ordered By: Derrick Gill on 02-12-2025 WBC (Bld) [#/Vol] 7.0 10*3/uL 4.4-11.0 [facility] CNOVon 11-05-2024 CNOV Office Visit (OBGYWM ) AVINASH WILLSON ([id number]) 1975 F Date Time Provider Department 11/05/24 8:00 AM CARLY JACKSON OBOUMOU During your visit today, we recorded the following information about you: Blood pressure Weight Height Last Period 126/88 93 kg 1.651 m 09/27/23 Carly Jackson MD 11/05/2024 8:34 AM Signed Poacher Operator offered: loretta/Juan Zaidi is a 49 year old who presents for an annual gynecologic exam without complaints. Postmenopausal: Yes since age 48 HRT use: No. Still get period: No Menopause symptoms: Hot flashes; Night sweats; Vaginal dryness Time with current partner: 27 years Number of lifetime partners: 1 control frequency: Never HPV vaccine: No; Last pap smear: 10/30/2023 History of abnormal pap: No, all prior PAP smears have been normal Bothersome pelvic pain: No Last mammogram: 2023 normal History of abnormal mammogram: No Patient concerns for STD exposure: No. Last sexual contact: 7 days OB History T0 L2 SAB0 IAB0 Ectopic0 Multiple0 Live Births0 Comment: Vaginal deliveries Access [employer] History LMP: 09/27/2023, Having periods Age at Menarche: 15 Age at First : Age at Menopause: Access [employer] History Comments: Sexual Activity: Yes; Male Contraception: Pill PAST MEDICAL HISTORY Diagnosis Date Epilepsy (HCC) PAST SURGICAL HISTORY Procedure Laterality Date UNSPECIFIED ORAL SURGERY PROCEDURE, BY REPORT wisdom teeth No family history on file.SOCIAL HISTORY Social History Tobacco Use Smoking status: Never Smokeless tobacco: Never Vaping Use Vaping status: Never Used Substance Use Topics Alcohol use: Never Drug use: Never REVIEW OF SYSTEMS Abdomen: No abdominal pain, nausea, vomiting, diarrhea, or constipation. No bloating, early satiety, indigestion, or increased flatulence. Bladder: No dysuria, gross hematuria, urinary frequency, urinary urgency, or incontinence Breast: No breast lumps, nipple d/c, overlying skin changes, redness or skin retraction Allergies and current medication updated:Yes SENSITIVE EXAM: The sensitive examination was discussed with the Patient or Patient's Authorized Garment Alteration Examiner. As applicable, any other physician, advance practice provider, medical student, or other health professional student that will be observing or involved in the sensitive examination for educational or training purposes was discussed with the Patient or Authorized Garment Alteration Examiner. The Patient or Authorized Garment Alteration Examiner has agreed to proceed with the sensitive examination. (Sensitive examination includes inspection and/or palpation of the breasts, pelvis, prostate and anorectal regions). EXAM: BP 126/88 Ht 5' 5 (1.65m) Wt 205 lb (93.0kg) LMP 09/27/2023 BMI 34.11 kg/(m2). GENERAL: pleasant, female in no apparent distress HEENT: Normocephalic, atraumatic, mucus membranes moist, and no lesions NECK: Supple, full range of motion, no adenopathy, and thyroid normal DERMATOLOGY: Normal, without lesions, non-icteric, and non-hirsute BREAST: soft, non-tender, symmetric, no dominant mass, normal nipple-areolar complex, no lymphadenopathy, and no nipple discharge CHEST: Normal inspiratory effort ABDOMEN: soft, non-tender, and no masses PELVIC: external genitalia normal, normal Bartholin's glands, urethra, [place]'s glands, no vulvar lesions, no cervical lesions, good vaginal support, physiologic discharge present, normal appearing perineal body and perianal region BIMANUAL: uterus normal size, shape and consistency, no adnexal masses, and non-tender RECTOVAGINAL: rectovaginal exam negative for any masses or nodularity. NEURO: alert and oriented x3,exam grossly non-focal EXTREMITIES: normal ASSESSMENT/PLAN: 1) Health maintenance: Pap done with HPV. 2) Follow up one year or sooner as needed check LFTs in anticipation of veozah tx for hot flashes Carly Jackson MD Referring Provider: KAYRN ARRIAZA [[id number]] Allergies As of Date: 11/05/2024 Noted Allergy Reaction CATS 06/24/2002 Comments: running nose, eye itch DUST 06/24/2002 Comments: stuffy nose, sneezing MOLD 12/02/2002 Date Reviewed: 11/05/2024 Reviewed by: Juan Lo MA - Fully Assessed Reason for Visit: Well Woman [[id number]] Primary Visit Diagnosis:Encounter for gynecological examination (general) (routine) without abnormal findings [Z01.419] Other Visit Diagnoses:Encounter for screening mammogram for breast cancer [Z12.31] Encounter for screening for cervical cancer [Z12.4] Hormone replacement therapy (postmenopausal) [Z79.890] Order(s):ALISHA SCREENING W LEE [4655772] Order #: [id number] FUTURE PAP TEST [LZR1732] Order #: [id number] ALANINE AMINOTRANSFERASE / SGPT [SQALT] Order #: [id number] FUTURE ASPARTATE AMINOTRANSFERASE/SGOT [SQAST] Order #: [id number] FUTURE Prescriptions as of 11/05 (more content not included)... Normal [facility] HIGH RISK HUMAN PAPILLOMA YOSEF (HPV), PCR FOR DETECTION AND GENOTYPINGon 11-05-2024 HPV 16 Ag Ql (Unsp spec) Not detected Normal Not detec dotty [facility] Comment on above: Order Comment: Speci men Type: FLUID SPECIMEN Ordering Facility: [facility] Address: [address] [place] [address] Performed By: #### H PVHRT #### [facility] CLIA [id number] [address] [place] [address] [place] HPV 18 Ag Ql (Unsp spec) Not detected Normal Not detec dotty [facility] Comment on above: Order Comment: Speci men Type: FLUID SPECIMEN Ordering Facility: [facility] Address: [address] [place] [address] Performed By: #### H PVHRT #### [facility] CLIA [id number] [address] [place] [address] [place] HPV 31+33+35+39+45+51+52+56+ 58+59+66+68 DNA XANDER+probe Ql (Cvx) Not detected Normal Not detected [facility] Comment on above: Order Comment: Speci men Type: FLUID SPECIMEN Ordering Facility: [facility] Address: [address] [place] [address] Result Comment: High Risk HPV Other Type includes HPV types 31, 33, 35, 39, 45, 51, 52, 56, 58, 59, 66 and 68. Performed By: #### H PVHRT #### [facility] CLIA [id number] [address] [place] [address] [place] PAP TESTon 11-05-2024 ADEQUACY Normal [facility] Comment on above: Order Comment: Speci men Type: FLUID SPECIMEN Ordering Facility: [facility] Address: [address] [place] [address] Result Comment: Unsa tisfactory for evaluation. Limited cellularity. Performed By: #### L [id number] #### [facility] CLIA [id number] [address] [place] [address] [place] CASE REPORT Normal [facility] Comment on above: Order Comment: Speci men Type: FLUID SPECIMEN Ordering Facility: [facility] Address: [address] [place] [address] Result Comment: Gyne cologic Cytology Report Case: [id number] Authorizing Provider: Carly Jackson MD Collected: 11/05/2024 08:38 AM Ordering Location: OB/Gynecology Received: 11/05/2024 11:44 AM First Screen: Veronica Boyd, CT, ASCP Rescreen: Geno Pop, CT, ASCP Specimen: Pap Test, ThinPrep, Cervix Performed By: #### L [id number] #### [facility] CLIA [id number] [address] [place] [address] [place] CLINICAL HISTORY, CYTOLOGY, WIRELINE FIELD OPERATOR Routine Exam Normal [facility] Comment on above: Order Comment: Speci men Type: FLUID SPECIMEN Ordering Facility: [facility] Address: [address] [place] [address] Performed By: #### L [id number] #### [facility] CLIA [id number] [address] [place] [address] [place] FINAL PERFORMING LAB Normal [facility] Comment on above: Order Comment: Speci men Type: FLUID SPECIMEN Ordering Facility: [facility] Address: [address] [place] [address] Result Comment: Tech nical component, radiology nurse screening performed at [facility], [address] [place] [address] CLIA# [id number] Diagnostic interpretation performed at [facility], [address] [place] [address] CLIA# [id number] Process Description Writer: Elder Araujo M.D. Performed By: #### L [id number] #### [facility] CLIA [id number] [address] [place] [address] [place] INTERPRETATION, CYTOLOGY, WIRELINE FIELD OPERATOR Normal [facility] Comment on above: Order Comment: Speci men Type: FLUID SPECIMEN Ordering Facility: [facility] Address: [address] [place] [address] Result Comment: Unab le to perform interpretation due to unsatisfactory specimen. Performed By: #### L [id number] #### [facility] CLIA [id number] [address] [place] [address] [place] LMP 09/27/2023 Normal [facility] Comment on above: Order Comment: Speci men Type: FLUID SPECIMEN Ordering Facility: [facility] Address: [address] [place] [address] Performed By: #### L [id number] #### [facility] CLIA [id number] [address] [place] [address] [place] PAP DISCLAIMER COMMENT The Pap Smear is a screening test for cervical cancer. False negative results occur with all screening tests, emphasizing the need for rescreening at recommended intervals, and clinical correlation. Normal [facility] Comment on above: Order Comment: Speci men Type: FLUID SPECIMEN Ordering Facility: [facility] Address: [address] [place] [address] Performed By: #### L [id number] #### [facility] CLIA [id number] [address] [place], [place] [id number] [place] PAP BRICK LOADER COMMENT This specimen has be en analyzed by the ThinPrep Imaging System, an automated imaging and review system, which assists the laboratory in evaluating cells on ThinPrep Pap tests. Following automated imaging, selected rodriguez from every slide are reviewed by a radiology nurse. Normal [facility] Comment on above: Order Comment: Speci men Type: FLUID SPECIMEN Ordering Facility: [facility] Address: [address] [place] [address] Performed By: #### L [id number] #### [facility] CLIA [id number] [address] [facility] [id number] [id number] [place] SCRN MAMM (CAD)W/LEE BILATo n 07-21-2024 SCRN MAMM (CAD)W/LEE BILAT [facility] Imaging Services [address] [place] [address] SCRN MAMM (CAD)W/LEE BILAT MR#: [id number] Acct: [id number] Name: AVINASH WILLSON Rep #: [id number] : 1975 F 48 From: Robin Heredia MD PCP: Dr. Margy Castillo MD Status: [facility] Study: SCRN MAMM (CAD)W/LEE BILAT Date of Exam: 07/08 01/29 Exam# [id number] Ordering Dr: Karyn Arriaza [facility] [id number] MAMMOGRAPHY - BILATERAL SCREENING 3-D TOMOSYNTHESIS REASON FOR EXAM: Female, 48 years old. SCREENING PERTINENT HISTORY: No significant family history. TECHNIQUE: 2-D mammograms and 3-D Tomosynthesis of the breast (s) were performed. CAD was performed. COMPARISON: 08/28/2022 FINDINGS: The breast composition is heterogeneously dense that can obscure small breast masses. Scattered benign calcifications are seen. No dense spiculated masses or suspicious microcalcifications are identified. No architectural distortion is identified. There is no skin thickening or retraction. There has been no significant change since the prior study. BI/SCRN MAMM (CAD)W/LEE BILAT IMPRESSION: No mammographic signs of malignancy. Routine yearly mammograms recommended. ASSESSMENT CATEGORY: BIRADS Category 1: Negative. A letter regarding these results will be sent to the patient by the facility within 30 days. FOLLOW UP RECOMMENDATION: Yearly follow up mammogram recommended. (A) Approximately 10% of breast cancers are not detected by mammography. A normal mammogram should not delay biopsy of a clinically suspicious abnormality. Electronically Signed: Robin Heredia MD at 8:10 EDT , CC: STAN Arriaza; Dr. Margy Castillo MD Contact Lens Cutter: Signed Normal [facility] Absolute lymphocyte countOrd ered By: Jayashree Chaudhari on 10-25-2022 Lymphocytes Auto (Unsp spec) [#/Vol] 4.14 10*3/uL 0.83-4.51 [facility] Basophil percentageOrdered B y: Jayashree Chaudhari on 10-25-2022 Basophils/100 WBC (Bld) 0.7 % 0-1 [facility] Bilirubin [Mass/Vol] 0.30 mg/dL 0.20-1.00 [facility] Comment on above: For patients on eltr ombopag therapy, use of Dimension [place] TBIL is not recommended. Eosinophils/100 WBC (Bld) 0.9 % 0-5 [facility] Neutrophils (Bld) [#/Vol] 3.7 10*3/uL 2.0-7.7 [facility] Neutrophils/100 WBC (Bld) 41.1 % 47-70 [facility] Protein [Mass/Vol] 7.4 g/dL 6.4-8.2 [facility] WBC (Bld) [#/Vol] 9.1 10*3/uL 4.4-11.0 [facility] Blood erythrocytes count (nu mber/volume)Ordered By: Jayashree Chaudhari on 10-25-2022 RBC (Bld) [#/Vol] 4.55 10*6/uL 4.2-5.4 [facility] Blood hemoglobin measurement (mass/volume)Ordered By: Jayashree Chaudhari on 10-25-2022 Hemoglobin (Bld) [Mass/Vol] 9.5 g/dL 12.0-15.0 [facility] Blood lymphocytes/100 leukoc ytesOrdered By: Jayashree Chaudhari on 10-25-2022 Lymphocytes/100 WBC (Bld) 45.6 % 19-41 [facility] Blood monocytes/100 leukocyt esOrdered By: Jayashree Chaudhari on 01-18-2023 Monocytes/100 WBC (Bld) 11.5 % 0-10 [facility] Blood platelet mean volumeOr dered By: Jayashree Chaudhari on 10-25-2022 Platelet mean volume (Bld) [Entitic vol] 10.1 fL 6.2-12.0 [facility] Determination of erythrocyte mean corpuscular volume (MCV)Ordered By: Jayashree Chaudhari on 10-25-2022 MCV (RBC) [Entitic vol] 72.3 fL 81-99 [facility] Direct bilirubinOrdered By: Jaysahree Chaudhari on 10-25-2022 Bilirubin.direct [Mass/Vol] 0.09 mg/dL 0.00-0.30 [facility] Hematocrit Auto (Bld) [Volum e fraction]Ordered By: Jayashree Chaudhari on 10-25-2022 Hematocrit (Bld) [Volume fraction] 32.9 % 37-47 [facility] Laboratory - Chemistry and C hemistry - challengeOrdered By: Jayashree Chaudhari on 10-25-2022 ALP [Catalytic activity/Vol] 36 U/L 45-117 [facility] ALT [Catalytic activity/Vol] 16 U/L 13-56 [facility] Globulin (S) [Mass/Vol] 4.3 g/dL 2.2-4.2 [facility] Laboratory - Hematology and Cell countsOrdered By: Jayashree Chaudhari on 10-25-2022 Erythrocyte distribution width (RBC) [Entitic vol] 40.2 fL 35.1-43.9 [facility] Erythrocyte distribution width (RBC) [Ratio] 15.8 % 11.6-14.6 [facility] Immature granulocytes/100 WBC (Bld) 0.200 % 0.0-0.9 [facility] Comment on above: IG% - Immature Granu locytes (promyelocytes, myelocytes and metamyelocytes) > 1% indicates that a LEFT SHIFT is Present. MCH (RBC) [Entitic mass] 20.9 pg 27.0-32.0 [facility] Nucleated RBC/100 WBC (Bld) [Ratio] 0 % 0-5 [facility] MCHC Auto (RBC) [Mass/Vol]Or dered By: Jayashree Chaudhari on 10-25-2022 MCHC (RBC) [Mass/Vol] 28.9 g/dL 32-36 [facility] No Panel InformationOrdered By: Jayashree Chaudhari on 10-25-2022 Valproic Acid (Depakene) Level 60 ug/mL 50-100 [facility] Platelets bldOrdered By: Cheryl Chaudhari on 10-25-2022 Platelets (Bld) [#/Vol] 350 10*3/uL 150-450 [facility] Serum or plasma albumin emeka urement (mass/volume)Ordered By: Jayashree Chaudhari on 10-25-2022 Albumin [Mass/Vol] 3.1 g/dL 3.2-5.0 [facility] Thin prep Papanicolaou smear with manual screeningOrdered By: Jayashree Chaudhari on 10-25-2022 Thin prep Papanicolaou smear with manual screening 16 U/L 15-37 [facility] Vital Signs Date Time Vital Sign Value Performing Clinician Faci jose antonio 11-05-2024 07:55-0500 Body height 165.1 cm Carly Jackson MD Work Phone: [facility] 11-05-2024 07:55-0500 Body mass index (BMI) [Ratio] 34.11 kg/m2 Carly Jackson MD Work Phone: [facility] 11-05-2024 07:55-0500 Body weight 92.99 kg Carly Jackson MD Work Phone: [facility] 11-05-2024 07:55-0500 Diastolic blood pressure 88 mm[Hg] Carly Jackson MD Work Phone: [facility] 11-05-2024 07:55-0500 Systolic blood pressure 126 mm[Hg] Carly Jackson MD Work Phone: [facility] 11-09-2023 11:18-0500 Body weight 88.36 kg Karyn Arriaza APRN.CNM Work Phone: [facility] 11-09-2023 11:18-0500 Diastolic blood pressure 68 mm[Hg] Karyn Arriaza APRN.CNM Work Phone: [facility] 11-09-2023 11:18-0500 Systolic blood pressure 120 mm[Hg] Karyn Arriaza HARDENER HELPER.CNM Work Phone: [facility] Encounters Encounter Date Encounter Type Care Provider Facility Start: 02-18-2025 ambulatory [facility] lity:[facility] Start: 02-12-2025 End: 02-12-[address] Margy Castillo MD Work Phone: [facility] Work Phone: Start: 02-12-2025 End: 02-12-[address] Derrick Gill MD -Laboratory Work Phone: Start: 02-12-2025 End: 02-12-2025 ambulatory Derrick Gill Facility:[facility] Start: 11-18-2024 End: 01-18-2025 Follow-up encounter Carly Jackson MD Work Phone: OB/Gynecology Start: 11-05-2024 End: 11-05-2024 ambulatory CARLY JACKSON Facility:[facility] Start: 11-05-2024 End: 11-05-2024 Patient encounter procedure Carly Jackson MD Work Phone: OB/Gynecology Comment on above: Encounter for gyneco logical examination (general) (routine) without abnormal findings (Primary Dx); Encounter for screening mammogram for breast cancer; Encounter for screening for cervical cancer; Hormone replacement therapy (postmenopausal) Start: 11-05-2024 End: 11-05-2024 Patient encounter status Carly Jackson MD Work Phone: [facility] Start: 07-21-2024 End: 07-21-2024 ambulatory Margy Castillo Facility:[facility] Start: 11-09-2023 End: 11-09-2023 Patient encounter procedure Karyn Arriaza HARDENER HELPER.CNM Work Phone: OB/Gynecology Comment on above: Cervical cancer scre ening (Primary Dx) Start: 10-25-2022 End: 10-25-2022 ambulatory [facility] Work Phone: Start: 10-25-2022 End: 10-25-2022 Patient encounter procedure [facility]-Laboratory Start: 08-28-2022 End: 08-28-2022 Patient encounter procedure [facility]-Outpatient Breast Imaging Procedures Date Procedure Procedure Detail Performing Clinician Start: 08-28-2022 Screening mammography Plan of Treatment Date Care Activity Detail Author Start: 11-05-2029 Screening for malignant neoplasm of cervix Cervical Cancer Screening [facility] Start: 11-09-2028 Screening for malignant neoplasm of cervix Cervical Cancer Screening [facility] Start: 10-29-2028 Screening for malignant neoplasm of cervix [facility] Start: 11-09-2025 End: 11-09-2025 Patient encounter procedure 11/09/2025 8:00 AM EST Office Visit OB/Gynecology [address] [place], [place] [address] Carly Jackson MD [address] [place] [address] Annual/ Mammo done at the [facility] OB/Gynecology Comment on above: Annual/ Mammo done at the [facility] Start: 07-21-2025 Screening for malignant neoplasm of breast Mammogram Screening [facility] Start: 11-05-2024 End: 02-04-2025 Alanine aminotransferase [Enzymatic activity/volume] in Serum or Plasma ALANINE AMINOTRANSFERASE / SGPT Lab Routine Hormone replacement therapy (postmenopausal) Expected: 11/05/2024, Expires: 02/04/2025 [facility] Comment on above: Expected: 11/05/2024, Expires: Start: 11-05-2024 End: 02-04-2025 Aspartate aminotransferase [Enzymatic activity/volume] in Serum or Plasma ASPARTATE AMINOTRANSFERASE/SGOT Lab Routine Hormone replacement therapy (postmenopausal) Expected: 11/05/2024, Expires: 02/04/2025 [facility] Comment on above: Expected: 11/05/2024, Expires: Start: 2024 Pneumococcal Vaccine: 50+ (1 of 1 - PCV) Pneumococcal Vaccine: 50+ (1 of 1 - PCV) [facility] Start: 2024 Shingrix Vaccine (1 of 2) Shingrix Vaccine (1 of 2) [facility] Start: 06-08-2024 Covid-19 Vaccine ( season) Covid-19 Vaccine ( season) [facility] Start: 10-08-2023 Depression Assessment Depression Assessment [facility] Start: 06-08-2023 Influenza vaccination Influenza Vaccine (#1) [facility] Start: 2019 Diabetes Screening Diabetes Screening [facility] Start: 2019 Lipid panel Lipid Screening [facility] Start: 2019 Screening for malignant neoplasm of colon [facility] Start: 2014 Screening for malignant neoplasm of breast Mammogram Screening [facility] Start: 1993 Hepatitis B Vaccine (1 of 3 - 19+ 3-dose series) Hepatitis B Vaccine (1 of 3 - 19+ 3-dose series) [facility] Start: 1993 Urine microalbumin profile DTaP,Tdap,Td Vaccine (1 - Tdap) [facility] Start: 1992 Anxiety Screening Anxiety Screening [facility] Start: 1992 Depression Screening Depression Screening [facility] Start: 1992 Hepatitis C screening Hepatitis C Screening [facility] Start: 05-02-1975 Covid-19 Vaccine (#1) Covid-19 Vaccine (#1) [facility] Start: 1974 Hepatitis B Vaccine (1 of 3 - 3-dose series) Hepatitis B Vaccine (1 of 3 - 3-dose series) [facility] End: 12-05-2025 DBT Breast - bilateral screening ALISHA SCREENING W LEE Radiology Routine Encounter for gynecological examination (general) (routine) without abnormal findings Encounter for screening mammogram for breast cancer 1 Occurrences starting 11/05/2024 until 12/05/2025 [facility] Work Phone: Comment on above: 1 Occurrences starting 11/05/2024 until 12/05/2025 PAP TEST PAP TEST Lab Rou drea Cervical cancer screening 11/09/2023 11:32 AM EST [facility] Work Phone: PAP TEST PAP TEST Lab Rou drea Encounter for gynecological examination (general) (routine) without abnormal findings Encounter for screening for cervical cancer 11/05/2024 8:38 AM EST [facility] Immunizations Immunization Date Immunization Notes Care Provider Ayan jose 08-22-2017 influenza virus vacc ine, unspecified formulation Karyn Arriaza HARDENER HELPER.CNM Work Phone: [facility] Payers Date Payer Category Payer Self-pay [id number] 2023 Private Health Insurance [id number] 2023 Private Health Insurance [id number] Private Health Insurance [employer] [id number] Unknown [id number] Unknown [id number] Unknown [id number] Unknown [id number] Social History Date Type Detail Facility [facility] if ever smoked [facility] Work Phone: Start: 1975 Sex Assigned At Female [facility] Start: 11-09-2023 Tobacco [facility] Never smoked tobacco [facility] Start: 11-09-2023 Tobacco use and exposure Smokeless tobacco non-user [facility] Start: 11-09-2023 End: 11-05-2024 Alcohol intake Lifetime non-drinker (finding) [facility] Start: 10-29-2023 End: 11-09-2023 History of Social function [facility] Start: 10-29-2023 End: 11-09-2023 Tobacco use panel [facility] National Score (1-100), lower number is lower risk 70 [facility] Tobacco [facility] Unknown if ever smoked [facility] Work Phone: Progress note 11-05-2024 Note Date & Type Note Facility 11-05-2024 Note HNO ID: [id number] Author: CARLY JACKSON MD Service: ? Author Type: Physician Type: Progress Notes Filed: 11/05/2024 08:34 Note Text: Poacher Operator offered: loretta/Juan Zaidi is a 49 year old who presents for an annual gynecologic exam without complaints. Postmenopausal: Yes since age 48 HRT use: No. Still get period: No Menopause symptoms: Hot flashes; Night sweats; Vaginal dryness Time with current partner: 27 years Number of lifetime partners: 1 control frequency: Never HPV vaccine: No; Last pap smear: 10/30/2023 History of abnormal pap: No, all prior PAP smears have been normal Bothersome pelvic pain: No Last mammogram: 2023 normal History of abnormal mammogram: No Patient concerns for STD exposure: No. Last sexual contact: 7 days OB History T0 L2 SAB0 IAB0 Ectopic0 Multiple0 Live Births0 Comment: Vaginal deliveries Access Tech History LMP: 09/27/2023, Having periods Age at Menarche: 15 Age at First : Age at Menopause: Access Tech History Comments: Sexual Activity: Yes; Male Contraception: Pill PAST MEDICAL HISTORY Diagnosis Date Epilepsy (HCC) PAST SURGICAL HISTORY Procedure Laterality Date UNSPECIFIED ORAL SURGERY PROCEDURE, BY REPORT wisdom teeth No family history on file.SOCIAL HISTORY Social History Tobacco Use Smoking status: Never Smokeless tobacco: Never Vaping Use Vaping status: Never Used Substance Use Topics Alcohol use: Never Drug use: Never REVIEW OF SYSTEMS Abdomen: No abdominal pain, nausea, vomiting, diarrhea, or constipation. No bloating, early satiety, indigestion, or increased flatulence. Bladder: No dysuria, gross hematuria, urinary frequency, urinary urgency, or incontinence Breast: No breast lumps, nipple d/c, overlying skin changes, redness or skin retraction Allergies and current medication updated:Yes SENSITIVE EXAM: The sensitive examination was discussed with the Patient or Patient's Authorized Garment Alteration Examiner. As applicable, any other physician, advance practice provider, medical student, or other health professional student that will be observing or involved in the sensitive examination for educational or training purposes was discussed with the Patient or Authorized Garment Alteration Examiner. The Patient or Authorized Garment Alteration Examiner has agreed to proceed with the sensitive examination. (Sensitive examination includes inspection and/or palpation of the breasts, pelvis, prostate and anorectal regions). EXAM: BP 126/88 Ht 5' 5 (1.65m) Wt 205 lb (93.0kg) LMP 09/27/2023 BMI 34.11 kg/(m2). GENERAL: pleasant, female in no apparent distress HEENT: Normocephalic, atraumatic, mucus membranes moist, and no lesions NECK: Supple, full range of motion, no adenopathy, and thyroid normal DERMATOLOGY: Normal, without lesions, non-icteric, and non-hirsute BREAST: soft, non-tender, symmetric, no dominant mass, normal nipple-areolar complex, no lymphadenopathy, and no nipple discharge CHEST: Normal inspiratory effort ABDOMEN: soft, non-tender, and no masses PELVIC: external genitalia normal, normal Bartholin's glands, urethra, [place]'s glands, no vulvar lesions, no cervical lesions, good vaginal support, physiologic discharge present, normal appearing perineal body and perianal region BIMANUAL: uterus normal size, shape and consistency, no adnexal masses, and non-tender RECTOVAGINAL: rectovaginal exam negative for any masses or nodularity. NEURO: alert and oriented x3,exam grossly non-focal EXTREMITIES: normal ASSESSMENT/PLAN: 1) Health maintenance: Pap done with HPV. 2) Follow up one year or sooner as needed check LFTs in anticipation of [facility] tx for hot flashes Carly Jackson MD [facility] History of Present illness Narrative 11-05-2024 Carly Jackson MD - 11/05/2024 7:50 AM EST Note Date & Type Note Facility 11-05-2024 History of Presen t illness Narrative Poacher Operator offered: accepted/Juan Zaidi is a 49 year old who presents for an annual gynecologic exam without complaints. Postmenopausal: Yes since age 48 HRT use: No. Still get period: No Menopause symptoms: Hot flashes; Night sweats; Vaginal dryness Time with current partner: 27 years Number of lifetime partners: 1 control frequency: Never HPV vaccine: No; Last pap smear: 10/30/2023 History of abnormal pap: No, all prior PAP smears have been normal Bothersome pelvic pain: No Last mammogram: 2023 normal History of abnormal mammogram: No Patient concerns for STD exposure: No. Last sexual contact: 7 days OB History T0 L2 SAB0 IAB0 Ectopic0 Multiple0 Live Births0 Comment: Vaginal deliveries Access Tech History LMP: 09/27/2023, Having periods Age at Menarche: 15 Age at First : Age at Menopause: Access Tech History Comments: Sexual Activity: Yes; Male Contraception: Pill PAST MEDICAL HISTORY Diagnosis Date Epilepsy (HCC) PAST SURGICAL HISTORY Procedure Laterality Date UNSPECIFIED ORAL SURGERY PROCEDURE, BY REPORT wisdom teeth No family history on file.SOCIAL HISTORY Social History Tobacco Use Smoking status: Never Smokeless tobacco: Never Vaping Use Vaping status: Never Used Substance Use Topics Alcohol use: Never Drug use: Never REVIEW OF SYSTEMS Abdomen: No abdominal pain, nausea, vomiting, diarrhea, or constipation. No bloating, early satiety, indigestion, or increased flatulence. Bladder: No dysuria, gross hematuria, urinary frequency, urinary urgency, or incontinence Breast: No breast lumps, nipple d/c, overlying skin changes, redness or skin retraction Allergies and current medication updated:Yes SENSITIVE EXAM: The sensitive examination was discussed with the Patient or Patient's Authorized Garment Alteration Examiner. As applicable, any other physician, advance practice provider, medical student, or other health professional student that will be observing or involved in the sensitive examination for educational or training purposes was discussed with the Patient or Authorized Garment Alteration Examiner. The Patient or Authorized Garment Alteration Examiner has agreed to proceed with the sensitive examination. (Sensitive examination includes inspection and/or palpation of the breasts, pelvis, prostate and anorectal regions). EXAM: BP 126/88 Ht 5' 5 (1.65m) Wt 205 lb (93.0kg) LMP 09/27/2023 BMI 34.11 kg/(m^2). GENERAL: pleasant, female in no apparent distress HEENT: Normocephalic, atraumatic, mucus membranes moist, and no lesions NECK: Supple, full range of motion, no adenopathy, and thyroid normal DERMATOLOGY: Normal, without lesions, non-icteric, and non-hirsute BREAST: soft, non-tender, symmetric, no dominant mass, normal nipple-areolar complex, no lymphadenopathy, and no nipple discharge CHEST: Normal inspiratory effort ABDOMEN: soft, non-tender, and no masses PELVIC: external genitalia normal, normal Bartholin's glands, urethra, G[place]ch[place]'s glands, no vulvar lesions, no cervical lesions, good vaginal support, physiologic discharge present, normal appearing perineal body and perianal region BIMANUAL: uterus normal size, shape and consistency, no adnexal masses, and non-tender RECTOVAGINAL: rectovaginal exam negative for any masses or nodularity. NEURO: alert and oriented x3,exam grossly non-focal EXTREMITIES: normal ASSESSMENT/PLAN: 1) Health maintenance: Pap done with HPV. 2) Follow up one year or sooner as needed check LFTs in anticipation of veoz tx for hot flashes Carly Jackson MD documented in this encounter [facility] History of Present illness Narrative 11-09-2023 Karyn Arriaza APRN.CNM - 11/09/2023 11:19 AM EST Note Date & Type Note Facility 11-09-2023 History of Presen t illness Narrative Patient here today for repeat PAP only due to insufficient sample. Karyn Arriaza APRN.CNM documented in this encounter [facility] History of Past illness Narrative 07-21-2003 Note Date & Type Note Facility 07-21-2003 History of Past i llness Narrative Problem Noted Date Diagnosed Date Resolved Date Unspecified hemorrhage in ea rly , antepartum 07/21/2003 09/08/2003 THREATEN ABORT-ANTEPART, at 8 weeks 12/30/2002 06/09/2003 Unspecified high-risk 12/02/2002 09/08/2003 documented as of this encounter (statuses as of 11/09/2023) [facility] Evaluation note Note Date & Type Note Facility Evaluation note No assessment information [facility] Work Phone: Evaluation note Note Date & Type Note Facility Evaluation note Diagnosis Cervical cancer screening- Primary Screening for malignant neoplasm of the cervix documented in this encounter [facility] Evaluation note Note Date & Type Note Facility Evaluation note Diagnosis Encounter for gynecological examination (general) (routine) without abnormal findings- Primary Encounter for screening mammogram for breast cancer Encounter for screening for cervical cancer Hormone replacement therapy (postmenopausal) Need for prophylactic hormone replacement therapy (postmenopausal) documented in this encounter [facility] Reason for referral (narrative) Diagnostic Procedure Only (Routine) - New Request Note Date & Type Note Facility Reason for referral (narrati ve) Specialty Diagnoses / Procedures Referred By Alok t Referred To Contact [facility] Diagnoses Encounter for gynecological examination (general) (routine) without abnormal findings Encounter for screening mammogram for breast cancer Procedures ALISHA SCREENING W LEE SCREENING DIGITAL BREAST TOMOSYNTHESIS BI SCREENING MAMMOGRAPHY BI 2-VIEW BREAST INC Carly Dorman MD [address] [place] [address] [facility] [address] [place] [address] Referral ID Status Reason Start Date Expiration Date Visits Requested Visits Authorized [id number] New Request Auto-Generat ed Referral 11/05/2024 12/05/2025 1 1 [facility] Reason for referral (narrative) Note Date & Type Note Facility Reason for referral (narrative) No reason for referral information available [facility] Work Phone: Chief Complaint and Reason for Visit Chief Complaint SCREENING Summary Purpose Family History No Family History Records FoundNo Family History Records Found Advance Directives No Advanced Directives Records FoundNo Advanced Directives Records Found Additional Source Comments Care Teams (unrecognized sec tion and content) Team Status: Active Member Role Status Dates Dr. Tae Castillo MD Family Provider Active Dr. Tae Castillo MD Primary Care Provider Activ e Team Status: Inactive Member Role Status Dates Dr. Tae Castillo MD Primary Care Provider Activ e Dr. Giovanni Dubois MD Attending Provider Active Team Status: Inactive Member Role Status Dates Dr. Tae Castillo MD Primary Care Provider Activ e SALLIE Antunez Attending Provider Active Legal Recruiter Relationship Specialty Start Date End Date Margy Castillo MD [address] [place] [address] PCP - General Family Medicine 01/29/19 Legal Recruiter Relationship Specialty Start Date End Date Margy Castillo MD [address] [place] [address] PCP - General Family Medicine 01/29/19 Team Status: Active Member Role Status Dates Dr. Margy Castillo MD Primary Care Provider Acti ve Team Status: Inactive Member Role Status Dates Dr. Margy Castillo MD Primary Care Provider Acti ve Start: February 12, 2025 End: February 12, 2025 Dr. Derrick Gill MD Attending Provider Active S tart: February 12, 2025 End: February 12, 2025 Dr. Derrick Gill MD Referring Provider Active S tart: February 12, 2025 End: February 12, 2025 Goals (unrecognized section and content) Goals may be documented in a n alternate sectionGoals may be documented in an alternate section Source Comments (unrecognize d section and content) In the event this informatio n is protected by the Federal Confidentiality of Alcohol and Drug Abuse Patient Records regulations: The Federal rules restrict any use of the information to criminally investigate or prosecute any alcohol or drug abuse patient.[facility] event this information is protected by the Federal Confidentiality of Alcohol and Drug Abuse Patient Records regulations: The Federal rules restrict any use of the information to criminally investigate or prosecute any alcohol or drug abuse patient.[facility] event this information is protected by the Federal Confidentiality of Alcohol and Drug Abuse Patient Records regulations: The Federal rules restrict any use of the information to criminally investigate or prosecute any alcohol or drug abuse patient.[facility] Reason for Visit (unrecogniz ed section and content) Reason Comments [facility] INFORMATION SOURCE (unrecogn ized section and content) DATE CREATED AUTHOR 11/14/2024 [facility] DATE CREATED AUTHOR AUTHOR'S ORGANIZ ATION 02/19/2025 [facility] FOR RECORDS PERTAINING TO PATIENTS WHO ARE OR HAVE BEEN ENROLLED IN A CHEMICAL DEPENDENCY/SUBSTANCEABUSE PROGRAM, SOME INFORMATION MAY BE OMITTED. This clinical summary was aggregated from multiple sources. Caution should be exercised in using it in the provision of clinical care. This summary normalizes information from multiple sources, and as a consequence, information in this document may materially change the coding, format and clinical context of patient data. In addition, data may be omitted in some cases. CLINICAL DECISIONS SHOULD BE BASED ON THE PRIMARY CLINICAL RECORDS. [employer] [facility]. provides no warranty or guarantee of the accuracy or completeness of information in this document.
--- OUTSIDE RECORDS SUMMARY | 2025-05-14 07:06 | XMS RPT_ITS | CCD ---
Author Organization [facility] Inform ion Partnership [facility] Care Team Providers Care Police Captain Senior Name Role Phone Margy Castillo MD Primary [...] Translations: [CATS] Propensity to adverse reactions 06-24-2002 [facility] Work Phone (unformatted) : [phone] (4 sources) Dust; Translations: [DUST] Propensity to adverse reactions 06-24-2002 [facility] Work Phone (unformatted) : [phone] (4 sources) Mold Extract; Translations: [MOLD] Drug Allergy 12-02-2002 [facility] Work Phone: Medications Current Medications Medication Drug [...] Auto (Unsp spec) [#/Vol] 3.28 10*3/uL 0.83-4.51 [facility] Absolute neutrophil countOrd ered By: Derrick Gill on 02-12-2025 Neutrophils (Bld) [#/Vol] 2.9 10*3/uL 2.0-7.7 [facility] Anion gap in Serum or Plasma Ordered By: Derrick Gill on 02-12-2025 Anion gap [Moles/Vol] 14 mmol/L 5-15 [facility] Automated lymphocyte count a s percentage of total leukocytesOrdered By: Derrick Gill on 02-12-2025 Lymphocytes/100 WBC Auto (Unsp spec) 46.9 % High 19-41 [facility] BUN/creatinine ratioOrdered By: Derrickmynor Gill on 02-12-2025 Urea nitrogen/Creatinine [Mass ratio] 18.5 mg/mg 10-20 [facility] Basophil percentageOrdered B y: Derrick Gill on 02-12-2025 Basophils/100 WBC (Bld) 1.0 % 0-1 W [facility] Bilirubin, totalOrdered By: Derrick Gill on 02-12-2025 Bilirubin [Mass/Vol] 0.57 mg/dL Normal 0.00-1.30 [facility] Comment on above: Performed By: #### L 100.0100, L500.4050, L501.8100 #### [facility] Laboratory [address] [place], [address] CBC W/Diff, Automatedon 05- Absolute Lymph 3.28 X10 3/uL Normal 0.83-4.51 [facility] Comment on above: Performed By: #### L 100.0100, L500.4050, L501.8100 #### [facility] Laboratory [address] [place], [address] Absolute Neut 2.9 X10 3/uL Normal 2.0-7.7 [facility] Comment on above: Performed By: #### L 100.0100, L500.4050, L501.8100 #### [facility] Laboratory [address] [place], [address] Basophils/100 WBC (Bld) 1.0 % Normal 0-1 W [facility] Comment on above: Performed By: #### L 100.0100, L500.4050, L501.8100 #### [facility] Laboratory [address] [place], [address] Eosinophils/100 WBC (Bld) 1.6 % Normal 0-5 [facility] Comment on above: Performed By: #### L 100.0100, L500.4050, L501.8100 #### [facility] Laboratory [address] [place], [address] Erythrocyte distribution width (RBC) [Ratio] 16.4 % High 11.6-14.6 [facility] Comment on above: Performed By: #### L 100.0100, L500.4050, L501.8100 #### [facility] [address] [place], [address] Hematocrit (Bld) [Volume fraction] 35.6 % Low 37-47 [facility] Comment on above: Performed By: #### L 100.0100, L500.4050, L501.8100 #### [facility] [address] [place], [address] Hemoglobin (Bld) [Mass/Vol] 10.8 g/dL Low 12.0-15.0 [facility] Comment on above: Performed By: #### L 100.0100, L500.4050, L501.8100 #### [facility] [address] [place], [address] IG% 0.300 Normal 0.0-0.9 [facility] Comment on above: Result Comment: IG% - Immature Granulocytes (promyelocytes, myelocytes and metamyelocytes) > 1% indicates that a LEFT SHIFT is Present. Performed By: #### L 100.0100, L500.4050, L501.8100 #### [facility] [address] [place], [address] Lymphocytes/100 WBC (Bld) 46.9 % High 19-41 [facility] Comment on above: Performed By: #### L 100.0100, L500.4050, L501.8100 #### [facility] [address] [place], [address] MCH (RBC) [Entitic mass] 22.6 pg Low 27.0-32.0 [facility] Comment on above: Performed By: #### L 100.0100, L500.4050, L501.8100 #### [facility] [address] [place], [address] MCHC (RBC) [Mass/Vol] 30.3 g/dL Low 32-36 [facility] Comment on above: Performed By: #### L 100.0100, L500.4050, L501.8100 #### [facility] [address] [place], [address] MCV (RBC) [Entitic vol] 74.5 fL Low 81-99 [facility] Comment on above: Performed By: #### L 100.0100, L500.4050, L501.8100 #### [facility] [address] [place], [address] Monocytes/100 WBC (Bld) 8.3 % Normal 0-10 [facility] Comment on above: Performed By: #### L 100.0100, L500.4050, L501.8100 #### [facility] Laboratory [address] [place], [address] Neutrophils/100 WBC (Bld) 41.9 % Low 47-70 [facility] Comment on above: Performed By: #### L 100.0100, L500.4050, L501.8100 #### [facility] [address] [place], [address] Nucleated RBC (Bld) [#/Vol] 0 10*3/uL Normal 0-5 [facility] Comment on above: Performed By: #### L 100.0100, L500.4050, L501.8100 #### [facility] [address] [place], [address] Platelet mean volume (Bld) [Entitic vol] 10.9 fL Normal 6.2-12.0 [facility] Comment on above: Performed By: #### L 100.0100, L500.4050, L501.8100 #### [facility] Laboratory [address] [place], [address] Platelets (Bld) [#/Vol] 324 10*3/uL Normal 150-450 [facility] Comment on above: Performed By: #### L 100.0100, L500.4050, L501.8100 #### [facility] [address] [place], [address] RBC (Bld) [#/Vol] 4.78 10*6/uL Normal 4.2-5.4 [facility] Comment on above: Performed By: #### L 100.0100, L500.4050, L501.8100 #### [facility] [address] [place], [address] RDW SD 44.2 fl High 35.1-43.9 [facility] Comment on above: Performed By: #### L 100.0100, L500.4050, L501.8100 #### [facility] [address] [place], [address] WBC (Bld) [#/Vol] 7.0 10*3/uL Normal 4.4-11.0 [facility] Comment on above: Performed By: #### L 100.0100, L500.4050, L501.8100 #### [facility] [address] [place], [address] Carbon dioxide, total [Moles /volume] in Central venous bloodOrdered By: Derrick Gill on 02-12-2025 CO2 [Moles/Vol] 23.5 mmol/L Normal 21.0-32.0 [facility] Comment on above: Performed By: #### L 100.0100, L500.4050, L501.8100 #### [facility] [address] [place], [address] Chloride assayOrdered By: Jeffry Gill on 02-12-2025 Chloride [Moles/Vol] 104 mmol/L Normal 98-108 [facility] Comment on above: Performed By: #### L 100.0100, L500.4050, L501.8100 #### [facility] [address] [place], [address] Comprehensive Metabolic Prof ilon 02-12-2025 ALK PHOS 89 U/L Normal 35-104 [facility] Comment on above: Performed By: #### L 100.0100, L500.4050, L501.8100 #### [facility] Laboratory [address] [place], [address] BUN/CRE 18.5 RATIO Normal 10-20 [facility] Comment on above: Performed By: #### L 100.0100, L500.4050, L501.8100 #### [facility] [address] [place], [address] GAP 14 Normal 5-15 [facility] Comment on above: Performed By: #### L 100.0100, L500.4050, L501.8100 #### [facility] [address] [place], [address] Potassium [Moles/Vol] 4.1 mmol/L Normal 3.3-5.1 [facility] Comment on above: Performed By: #### L 100.0100, L500.4050, L501.8100 #### [facility] [address] [place], [address] T PROT 7.7 g/dL Normal 5.9-8.4 [facility] Comment on above: Performed By: #### L 100.0100, L500.4050, L501.8100 #### [facility] Laboratory [address] [place], [place], [address] Comprehensive Metabolic Prof ilOrdered By: Derrick Gill on 02-12-2025 AST [Catalytic activity/Vol] 111 U/L High <=31 [facility] Comment on above: Performed By: #### L 100.0100, L500.4050, L501.8100 #### [facility] [address] [place], [address] Eosinophil percentageOrdered By: Derrick Gill on 02-12-2025 Eosinophils/100 WBC (Bld) 1.6 % 0-5 [facility] Erythrocyte distribution wid th ratioOrdered By: Derrick Gill on 02-12-2025 Erythrocyte distribution width (RBC) [Ratio] 16.4 % High 11.6-14.6 [facility] Erythrocyte distribution wid th standard deviationOrdered By: Derrick Gill on 02-12-2025 Erythrocyte distribution width (RBC) [Ratio] 44.2 fl High 35.1-43.9 [facility] Glomerular filtration rate ( GFR) estimation/1.73 sq m using serum, plasma, or whole bOrdered By: Derrick Gill on 02-12-2025 GFR/1.73 sq M.predicted among non-blacks MDRD (S/P/Bld) [Vol rate/Area] 111 mL/min/{1.73_m2} Normal >60 [facility] Comment on above: mL/min/1.73m2 CKD-EP I Creatinine Equation (2020) Result Comment: mL/m in/1.73m2 CKD-EPI Creatinine Equation (2020) Performed By: #### L 100.0100, L500.4050, L501.8100 #### [facility] [address] [place], [address] Hematocrit Auto (Bld) [Volum e fraction]Ordered By: Derrick Gill on 02-12-2025 Hematocrit (Bld) [Volume fraction] 35.6 % Low 37-47 [facility] Hemoglobin measurementOrdere d By: Derrick Gill on 02-12-2025 Hemoglobin (Bld) [Mass/Vol] 10.8 g/dL Low 12.0-15.0 [facility] Immature granulocytes/100 WB C Auto (Bld)Ordered By: Derrick Gill on 02-12-2025 Immature granulocytes/100 WBC (Bld) 0.300 % 0.0-0.9 [facility] Comment on above: IG% - Immature Granu locytes (promyelocytes, myelocytes and metamyelocytes) > 1% indicates that a LEFT SHIFT is Present. MCV (mean corpuscular volume ) determinationOrdered By: Derrick Gill on 02-12-2025 MCV (RBC) [Entitic vol] 74.5 fL Low 81-99 [facility] Mean corpuscular hemoglobin (MCH) determinationOrdered By: Derrick Gill on 02-12-2025 MCH (RBC) [Entitic mass] 22.6 pg Low 27.0-32.0 [facility] Mean corpuscular hemoglobin concentration (MCHC) determinationOrdered By: Derrick Gill on 02-12-2025 MCHC (RBC) [Mass/Vol] 30.3 g/dL Low 32-36 [facility] Mean platelet volume determi nationOrdered By: Derrikc Gill on 02-12-2025 Platelet mean volume (Bld) [Entitic vol] 10.9 fL 6.2-12.0 [facility] Monocyte percentageOrdered B y: Derrick Gill on 02-12-2025 Monocytes/100 WBC (Bld) 8.3 % 0-10 W [facility] Neutrophil percentageOrdered By: Derrick Gill on 02-12-2025 Neutrophils/100 WBC (Bld) 41.9 % Low 47-70 [facility] Nucleated red blood cell per centageOrdered By: Derrick Gill on 02-12-2025 Nucleated RBC/100 WBC (Bld) [Ratio] 0 % 0-5 [facility] Platelet countOrdered By: Jeffry Gill on 02-12-2025 Platelets (Bld) [#/Vol] 324 10*3/uL 150-450 [facility] Potassium measurement (mass/ volume)Ordered By: Derrick Gill on 02-12-2025 Potassium (Unsp spec) [Mass/Vol] 4.1 mmol/L 3.3-5.1 [facility] RBC Auto (Bld) [#/Vol]Ordere d By: Derrick Gill on 02-12-2025 RBC (Bld) [#/Vol] 4.78 10*6/uL 4.2-5.4 [facility] Serum creatinine measurement (mass/volume)Ordered By: Derrick Gill on 02-12-2025 Creatinine [Mass/Vol] 0.56 mg/dL Low 0.70-1.20 [facility] Comment on above: Performed By: #### L 100.0100, L500.4050, L501.8100 #### [facility] Laboratory [address] [place], [address] Serum globulin measurementOr dered By: Derrick Gill on 02-12-2025 Globulin (S) [Mass/Vol] 3.3 g/dL Normal 2.2-4.2 [facility] Comment on above: Performed By: #### L 100.0100, L500.4050, L501.8100 #### [facility] [address] [place], [address] Serum glucose measurement (m ass/volume)Ordered By: Derrick Gill on 02-12-2025 Glucose [Mass/Vol] 161 mg/dL High 70-99 [facility] Comment on above: Performed By: #### L 100.0100, L500.4050, L501.8100 #### [facility] [address] [place], [address] Serum or plasma alanine gandhi otransferase (ALT) measurementOrdered By: Derrick Gill on 02-12-2025 ALT [Catalytic activity/Vol] 109 U/L High <=34 [facility] Comment on above: Performed By: #### L 100.0100, L500.4050, L501.8100 #### [facility] Laboratory [address] [place], [address] Serum or plasma albumin emeka urement (mass/volume)Ordered By: Derrick Gill on 02-12-2025 Albumin [Mass/Vol] 4.4 g/dL Normal 3.5-5.0 [facility] Comment on above: Performed By: #### L 100.0100, L500.4050, L501.8100 #### [facility] [address] [place], [address] Serum or plasma albumin/glob ulin mass ratioOrdered By: Derrick Gill on 02-12-2025 Albumin/Globulin [Mass ratio] 1.3 {ratio} Normal 0.9-2.4 [facility] Comment on above: Performed By: #### L 100.0100, L500.4050, L501.8100 #### [facility] Laboratory [address] [place], [address] Serum or plasma alkaline jer sphatase measurementOrdered By: Derrick Gill on 02-12-2025 ALP [Catalytic activity/Vol] 89 U/L 35-104 [facility] Serum or plasma calcium emeka urement (mass/volume)Ordered By: Derrick Gill on 02-12-2025 Calcium [Mass/Vol] 10.0 mg/dL Normal 7.6-11.0 [facility] Comment on above: Performed By: #### L 100.0100, L500.4050, L501.8100 #### [facility] [address] [place], [address] Serum or plasma urea nitroge n measurement (mass/volume)Ordered By: Derrick Gill on 02-12-2025 Urea nitrogen [Mass/Vol] 10 mg/dL Normal 4-19 [facility] Comment on above: Performed By: #### L 100.0100, L500.4050, L501.8100 #### [facility] [address] [place], [address] Serum or plasma valproate me asurement (mass/volume)Ordered By: Derrick Gill on 02-12-2025 Valproate [Mass/Vol] 77 ug/mL 50-100 [facility] Comment on above: Valproic Acid concen trations >100 ug/mL are potentially toxic. Sodium levelOrdered By: Mian Gill on 02-12-2025 Sodium [Moles/Vol] 141 mmol/L Normal 133-145 [facility] Comment on above: Performed By: #### L 100.0100, L500.4050, L501.8100 #### [facility] [address] [place], [place], [address] Total proteinOrdered By: Samir Gill on 02-12-2025 Protein [Mass/Vol] 7.7 g/dL 5.9-8.4 [facility] Valproic Acid (Depakene) Lev arjun 02-12-2025 VALPROIC ACID 77 ug/mL Normal 50-100 [facility] Comment on above: Result Comment: Valp roic Acid concentrations >100 ug/mL are potentially toxic. Performed By: #### L 100.0100, L500.4050, L501.8100 #### [facility] Laboratory [address] [place], [place], [address] White blood cell (WBC) count Ordered By: Derrick Gill on 02-12-2025 WBC (Bld) [#/Vol] 7.0 10*3/uL 4.4-11.0 [facility] CNOVon 11-05-2024 CNOV Office Visit (OBGYWM ) AVINASH WILLSON ([id number]) 1975 F Date Time Provider Department 11/05/24 8:00 AM CARLY JACKSON OBOUMOU During your visit today, we recorded the following information about you: Blood pressure Weight Height Last Period 126/88 93 kg 1.651 m 09/27/23 Carly Jackson MD 11/05/2024 8:34 AM Signed Technical Writer offered: loretta/Juan Zaidi is a 49 year [...] Ectopic0 Multiple0 Live Births0 Comment: Vaginal deliveries [employer] History LMP: 09/27/2023, Having periods Age at Menarche: 15 Age at First : 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 As applicable, any other physician, advance practice provider, medical student, or other health professional student that will be observing or involved in the sensitive examination for educational or training purposes was discussed with the Patient or Authorized Display Screen Fabricator. The Patient or Authorized Display Screen Fabricator has agreed to proceed with the sensitive [...] external genitalia normal, normal Bartholin's glands, urethra, Bally's glands, no vulvar lesions, no cervical lesions, [...] hot flashes Carly Jackson MD Referring Provider: KARYN ARRIAZA [[id number]] Allergies As of Date: 11/05/2024 Noted Allergy [...] therapy (postmenopausal) [Z79.890] Order(s):ALISHA SCREENING W LEE [8276855] Order #: [id number] FUTURE PAP TEST [TOX6676] Order #: [id number] ALANINE AMINOTRANSFERASE / SGPT [SQALT] Order #: [id number] FUTURE ASPARTATE AMINOTRANSFERASE/SGOT [SQAST] Order #: [id number] FUTURE Prescriptions as of 11/05 (more content not included)... Normal [facility] HIGH RISK HUMAN PAPILLOMA YOSEF (HPV), PCR FOR DETECTION AND GENOTYPINGon 11-05-2024 HPV 16 Ag Ql (Unsp spec) Not detected Normal Not detec dotty [facility] Comment on above: Order Comment: Speci men Type: FLUID SPECIMEN Ordering Facility: [facility] Address: [address] [place] [address] Performed By: #### H PVHRT #### [facility] CLIA [id number] [address] [place] [address] [place] HPV 18 Ag Ql (Unsp spec) Not detected Normal Not detec dotty [facility] Comment on above: Order Comment: Speci men Type: FLUID SPECIMEN Ordering Facility: [facility] Address: [address] [place] [address] Performed By: #### H PVHRT #### [facility] CLIA [id number] [address] [place] [address] [place] HPV 31+33+35+39+45+51+52+56+ 58+59+66+68 DNA XANDER+probe Ql (Cvx) Not detected Normal Not detected [facility] Comment on above: Order Comment: Speci men Type: FLUID SPECIMEN Ordering Facility: [facility] Address: [address] [place] [address] Result Comment: High Risk HPV Other Type includes HPV types 31, 33, 35, 39, 45, 51, 52, 56, 58, 59, 66 and 68. Performed By: #### H PVHRT #### [facility] CLIA [id number] [address] [place] [address] [place] PAP TESTon 11-05-2024 ADEQUACY Normal [facility] Comment on above: Order Comment: Speci men Type: FLUID SPECIMEN Ordering Facility: [facility] Address: [address] [place] [address] Result Comment: Unsa tisfactory for evaluation. Limited cellularity. Performed By: #### L [id number] #### [facility] CLIA [id number] [address] [place] [address] [place] CASE REPORT Normal [facility] Comment on above: Order Comment: Speci men Type: FLUID SPECIMEN Ordering Facility: [facility] Address: [address] [place] [address] Result Comment: Gyne cologic Cytology Report Case: [id number] Authorizing Provider: Carly Jackson MD Collected: 11/05/2024 08:38 AM Ordering Location: OB/Gynecology Received: 11/05/2024 11:44 AM First Screen: Veronica Boyd, CT, ASCP Rescreen: Geno Pop, CT, ASCP Specimen: Pap Test, ThinPrep, Cervix Performed By: #### L [id number] #### [facility] CLIA [id number] [address] [place] [address] [place] CLINICAL HISTORY, CYTOLOGY, ARMORED TRUCK DRIVER Routine Exam Normal [facility] Comment on above: Order Comment: Speci men Type: FLUID SPECIMEN Ordering Facility: [facility] Address: [address] [place] [address] Performed By: #### L [id number] #### [facility] CLIA [id number] [address] [place] [address] [place] FINAL PERFORMING LAB Normal [facility] Comment on above: Order Comment: Speci men Type: FLUID SPECIMEN Ordering Facility: [facility] Address: [address] [place] [address] Result Comment: Tech nical component, ent consultant screening performed at [facility], [address] [place] [address] CLIA# [id number] Diagnostic interpretation performed at [facility], [address] [place] [address] CLIA# [id number] Solvent Mixer: Elder Araujo M.D. Performed By: #### L [id number] #### [facility] CLIA [id number] [address] [place] [address] [place] INTERPRETATION, CYTOLOGY, ARMORED TRUCK DRIVER Normal [facility] Comment on above: Order Comment: Speci men Type: FLUID SPECIMEN Ordering Facility: [facility] Address: [address] [place] [address] Result Comment: Unab le to perform interpretation due to unsatisfactory specimen. Performed By: #### L [id number] #### [facility] CLIA [id number] [address] [place] [address] [place] LMP 09/27/2023 [facility] Comment on above: Order Comment: Speci men Type: FLUID SPECIMEN Ordering Facility: [facility] Address: [address] [place] [address] Performed By: #### L [id number] #### [facility] CLIA [id number] [address] [place] [address] [place] PAP DISCLAIMER COMMENT The Pap Smear is a screening test for cervical cancer. False negative results occur with all screening tests, emphasizing the need for rescreening at recommended intervals, and clinical correlation. [facility] Comment on above: Order Comment: Speci men Type: FLUID SPECIMEN Ordering Facility: [facility] Address: [address] [place] [address] Performed By: #### L [id number] #### [facility] CLIA [id number] [address] [place], [place] [id number] [place] PAP FINISH OFF OPERATOR COMMENT This specimen has be en analyzed by the ThinPrep Imaging System, an automated imaging and review system, which assists the laboratory in evaluating cells on ThinPrep Pap tests. Following automated imaging, selected rodriguez from every slide are reviewed by a ent consultant. [facility] Comment on above: Order Comment: Speci men Type: FLUID SPECIMEN Ordering Facility: [facility] Address: [address] [place] [address] Performed By: #### L [id number] #### [facility] CLIA [id number] [address] [facility] [address] [id number] [id number] [place] SCRN MAMM (CAD)W/LEE BILATo n 07-21-2024 SCRN MAMM (CAD)W/LEE BILAT [facility] Imaging Services [address] [place] [address] SCRN MAMM (CAD)W/LEE BILAT MR#: [id number] Acct: [id number] Name: AVINASH WILLSON Rep #: [id number] : 1975 F 48 From: Robin Heredia MD PCP: Dr. Margy Castillo MD Status: [facility] Study: SCRN MAMM (CAD)W/LEE BILAT Date of Exam: 07/08 01/29 Exam# [id number] Ordering Dr: Karyn Arriaza [facility] [id number] MAMMOGRAPHY - BILATERAL SCREENING 3-D TOMOSYNTHESIS REASON [...] CC: STAN Arriaza; Dr. Margy Castillo MD Afloat Cryptologic Manager: Signed Normal [facility] Absolute lymphocyte countOrd ered By: Jayashree Chaudhari on 10-25-2022 Lymphocytes Auto (Unsp spec) [#/Vol] 4.14 10*3/uL 0.83-4.51 [facility] Basophil percentageOrdered B y: Jayashree Chaudhari on 10-25-2022 Basophils/100 WBC (Bld) 0.7 % 0-1 W [facility] Bilirubin [Mass/Vol] 0.30 mg/dL 0.20-1.00 [facility] Comment on above: For patients on eltr ombopag therapy, use of Dimension [place] TBIL is not recommended. Eosinophils/100 WBC (Bld) 0.9 % 0-5 [facility] Neutrophils (Bld) [#/Vol] 3.7 10*3/uL 2.0-7.7 [facility] Neutrophils/100 WBC (Bld) 41.1 % 47-70 [facility] Protein [Mass/Vol] 7.4 g/dL 6.4-8.2 [facility] WBC (Bld) [#/Vol] 9.1 10*3/uL 4.4-11.0 [facility] Blood erythrocytes count (nu mber/volume)Ordered By: Jayashree Chaudhari on 10-25-2022 RBC (Bld) [#/Vol] 4.55 10*6/uL 4.2-5.4 [facility] Blood hemoglobin measurement (mass/volume)Ordered By: Jayashree Chaudhari on 10-25-2022 Hemoglobin (Bld) [Mass/Vol] 9.5 g/dL 12.0-15.0 [facility] Blood lymphocytes/100 leukoc ytesOrdered By: Jayashree Chaudhari on 10-25-2022 Lymphocytes/100 WBC (Bld) 45.6 % 19-41 [facility] Blood monocytes/100 leukocyt esOrdered By: Jayashree Chaudahri on 01-18-2023 Monocytes/100 WBC (Bld) 11.5 % 0-10 W [facility] Blood platelet mean volumeOr dered By: Jayashree Chaudhari on 10-25-2022 Platelet mean volume (Bld) [Entitic vol] 10.1 fL 6.2-12.0 [facility] Determination of erythrocyte mean corpuscular volume (MCV)Ordered By: Jayashree Chaudhari on 10-25-2022 MCV (RBC) [Entitic vol] 72.3 fL 81-99 W [facility] Direct bilirubinOrdered By: Jayashree Chaudhari on 10-25-2022 Bilirubin.direct [Mass/Vol] 0.09 mg/dL 0.00-0.30 [facility] Hematocrit Auto (Bld) [Volum e fraction]Ordered By: Jayashree Chaudhari on 10-25-2022 Hematocrit (Bld) [Volume fraction] 32.9 % 37-47 [facility] Laboratory - Chemistry and C hemistry - challengeOrdered By: Jayashree Chaudhari on 10-25-2022 ALP [Catalytic activity/Vol] 36 U/L 45-117 [facility] ALT [Catalytic activity/Vol] 16 U/L 13-56 [facility] Globulin (S) [Mass/Vol] 4.3 g/dL 2.2-4.2 W [facility] Laboratory - Hematology and Cell countsOrdered By: Jayashree Chaudhari on 10-25-2022 Erythrocyte distribution width (RBC) [Entitic vol] 40.2 fL 35.1-43.9 [facility] Erythrocyte distribution width (RBC) [Ratio] 15.8 % 11.6-14.6 [facility] Immature granulocytes/100 WBC (Bld) 0.200 % 0.0-0.9 [facility] Comment on above: IG% - Immature Granu locytes (promyelocytes, myelocytes and metamyelocytes) > 1% indicates that a LEFT SHIFT is Present. MCH (RBC) [Entitic mass] 20.9 pg 27.0-32.0 [facility] Nucleated RBC/100 WBC (Bld) [Ratio] 0 % 0-5 [facility] MCHC Auto (RBC) [Mass/Vol]Or dered By: Jayashree Chaudhari on 10-25-2022 MCHC (RBC) [Mass/Vol] 28.9 g/dL 32-36 [facility] No Panel InformationOrdered By: Jayashree Chaudhari on 10-25-2022 Valproic Acid (Depakene) Level 60 ug/mL 50-100 [facility] Platelets bldOrdered By: Cheryl Chaudhari on 10-25-2022 Platelets (Bld) [#/Vol] 350 10*3/uL 150-450 [facility] Serum or plasma albumin emeka urement (mass/volume)Ordered By: Jayashree Chaudhari on 10-25-2022 Albumin [Mass/Vol] 3.1 g/dL 3.2-5.0 [facility] Thin prep Papanicolaou smear with manual screeningOrdered By: Jayashree Chaudhari on 10-25-2022 Thin prep Papanicolaou smear with manual screening 16 U/L 15-37 [facility] Vital Signs Date Time Vital Sign Value Performing Clinician Faci jose antonio 11-05-2024 07:55-0500 Body height 165.1 cm Carly Jackson MD Work Phone: [facility] 11-05-2024 07:55-0500 Body mass index (BMI) [Ratio] 34.11 kg/m2 Carly Jackson MD Work Phone: [facility] 11-05-2024 07:55-0500 Body weight 92.99 kg Carly Jackson MD Work Phone: [facility] 11-05-2024 07:55-0500 Diastolic blood pressure 88 mm[Hg] Carly Jackson MD Work Phone: [facility] 11-05-2024 07:55-0500 Systolic blood pressure 126 mm[Hg] Carly Jackson MD Work Phone: [facility] 11-09-2023 11:18-0500 Body weight 88.36 kg Karyn Arriaza APRN.CNM Work Phone: [facility] 11-09-2023 11:18-0500 Diastolic blood pressure 68 mm[Hg] Karyn Arriaza APRN.CNM Work Phone: [facility] 11-09-2023 11:18-0500 Systolic blood pressure 120 mm[Hg] Karyn Arriaza 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 Margy Castillo MD Work Phone: [facility] Work Phone: Start: 02-12-2025 End: 02-12-[address] Derrick Gill MD -Laboratory Work Phone: Start: 02-12-2025 End: 02-12-2025 ambulatory Derrick Gill Facility:[facility] Start: 11-18-2024 End: 01-18-2025 Follow-up encounter Carly Jackson MD Work Phone: OB/Gynecology Start: 11-05-2024 End: 11-05-2024 ambulatory CARLY JACKSON Facility:[facility] Start: 11-05-2024 End: 11-05-2024 Patient encounter procedure Carly Jackson MD Work Phone: OB/Gynecology Comment on above: Encounter for gyneco logical examination (general) (routine) without abnormal findings (Primary Dx); Encounter for screening mammogram for breast cancer; Encounter for screening for cervical cancer; Hormone replacement therapy (postmenopausal) Start: 11-05-2024 End: 11-05-2024 Patient encounter status Carly Jackson MD Work Phone: [facility] Start: 07-21-2024 End: 07-21-2024 ambulatory Margy Castillo Facility:[facility] Start: 11-09-2023 End: 11-09-2023 Patient encounter procedure Karyn Arriaza FINISHER TAILOR APPRENTICE.CNM Work Phone: OB/Gynecology Comment on above: Cervical cancer scre ening (Primary Dx) Start: 10-25-2022 End: 10-25-2022 ambulatory [facility] Work Phone: Start: 10-25-2022 End: 10-25-2022 Patient encounter procedure [facility]-Laboratory Start: 08-28-2022 End: 08-28-2022 Patient encounter procedure [facility]-Outpatient Breast Imaging Procedures Date Procedure Procedure Detail Performing Clinician Start: 08-28-2022 Screening mammography Plan of Treatment Date Care Activity Detail Author Start: 11-05-2029 Screening for malignant neoplasm of cervix Cervical Cancer Screening [facility] Start: 11-09-2028 Screening for malignant neoplasm of cervix Cervical Cancer Screening [facility] Start: 10-29-2028 Screening for malignant neoplasm of cervix [facility] Start: 11-09-2025 End: 11-09-2025 Patient encounter procedure 11/09/2025 8:00 AM EST Office Visit OB/Gynecology [address] [place], [place] [id number] Carly Jackson MD [address] [place] [address] Annual/ Mammo done at the [facility] OB/Gynecology Comment on above: Annual/ Mammo done at the [facility] Start: 07-21-2025 Screening for malignant neoplasm of breast Mammogram Screening [facility] Start: 11-05-2024 End: 02-04-2025 Alanine aminotransferase [Enzymatic activity/volume] in Serum or Plasma ALANINE AMINOTRANSFERASE / SGPT Lab Routine Hormone replacement therapy (postmenopausal) Expected: 11/05/2024, Expires: 02/04/2025 [facility] Comment on above: Expected: 11/05/2024, Expires: Start: 11-05-2024 End: 02-04-2025 Aspartate aminotransferase [Enzymatic activity/volume] in Serum or Plasma ASPARTATE AMINOTRANSFERASE/SGOT Lab Routine Hormone replacement therapy (postmenopausal) Expected: 11/05/2024, Expires: 02/04/2025 [facility] Comment on above: Expected: 11/05/2024, Expires: Start: 2024 Pneumococcal Vaccine: 50+ (1 of 1 - PCV) Pneumococcal Vaccine: 50+ (1 of 1 - PCV) [facility] Start: 2024 Shingrix Vaccine (1 of 2) Shingrix Vaccine (1 of 2) [facility] Start: 06-08-2024 Covid-19 Vaccine ( season) Covid-19 Vaccine ( season) [facility] Start: 10-08-2023 Depression Assessment Depression Assessment [facility] Start: 06-08-2023 Influenza vaccination Influenza Vaccine (#1) [facility] Start: 2019 Diabetes Screening Diabetes Screening [facility] Start: 2019 Lipid panel Lipid Screening [facility] Start: 2019 Screening for malignant neoplasm of colon [facility] Start: 2014 Screening for malignant neoplasm of breast Mammogram Screening [facility] Start: 1993 Hepatitis B Vaccine (1 of 3 - 19+ 3-dose series) Hepatitis B Vaccine (1 of 3 - 19+ 3-dose series) [facility] Start: 1993 Urine microalbumin profile DTaP,Tdap,Td Vaccine (1 - Tdap) [facility] Start: 1992 Anxiety Screening Anxiety Screening [facility] Start: 1992 Depression Screening Depression Screening [facility] Start: 1992 Hepatitis C screening Hepatitis C Screening [facility] Start: 05-02-1975 Covid-19 Vaccine (#1) Covid-19 Vaccine (#1) [facility] Start: 1974 Hepatitis B Vaccine (1 of 3 - 3-dose series) Hepatitis B Vaccine (1 of 3 - 3-dose series) [facility] End: 12-05-2025 DBT Breast - bilateral screening ALISHA SCREENING W [facility]EE Radiology Routine Encounter for gynecological examination (general) (routine) without abnormal findings Encounter for screening mammogram for breast cancer 1 Occurrences starting 11/05/2024 until 12/05/2025 [facility] Work Phone: Comment on above: 1 Occurrences starting 11/05/2024 until 12/05/2025 PAP TEST PAP TEST Lab Rou drea Cervical cancer screening 11/09/2023 11:32 AM EST [facility] Work Phone: PAP TEST PAP TEST Lab Rou drea Encounter for gynecological examination (general) (routine) without abnormal findings Encounter for screening for cervical cancer 11/05/2024 8:38 AM EST [facility] Immunizations Immunization Date Immunization Notes Care Provider Ayan jose 08-22-2017 influenza virus vacc ine, unspecified formulation Karyn Arriaza FINISHER TAILOR APPRENTICE.CNM Work Phone: [facility] Payers Date Payer Category Payer Self-pay [id number] 2023 Private Health Insurance [id number] 2023 Private Health Insurance [id number] Private Health Insurance [employer] [id number] Unknown [id number] Unknown [id number] Unknown [id number] Unknown [id number] Social History Date Type Detail Facility [facility] Work Phone: Start: 1975 Sex Assigned At Female W [facility] Start: 11-09-2023 [facility] Never smoked tobacco [facility] Start: 11-09-2023 Tobacco use and exposure Smokeless tobacco non-user [facility] Start: 11-09-2023 End: 11-05-2024 Alcohol intake Lifetime non-drinker (finding) [facility] Start: 10-29-2023 End: 11-09-2023 History of Social function [facility] Start: 10-29-2023 End: 11-09-2023 Tobacco use panel [facility] National Score (1-100), lower number is lower risk 70 [facility] smoked [facility] Work Phone: Progress note 11-05-2024 Note Date & Type Note Facility 11-05-2024 Note HNO ID: [id number] Author: CARLY JACKSON MD Service: ? Author Type: Physician Type: Progress Notes Filed: 11/05/2024 08:34 Note Text: Technical Writer offered: loretta/Juan Zaidi is a 49 year [...] Ectopic0 Multiple0 Live Births0 Comment: Vaginal deliveries Enterprise Systems Architect History LMP: 09/27/2023, Having periods Age at Menarche: 15 Age at First : 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 As applicable, any other physician, advance practice provider, medical student, or other health professional student that will be observing or involved in the sensitive examination for educational or training purposes was discussed with the Patient or Authorized Display Screen Fabricator. The Patient or Authorized Display Screen Fabricator has agreed to proceed with the sensitive [...] external genitalia normal, normal Bartholin's glands, urethra, Bally's glands, no vulvar lesions, no cervical lesions, [...] as needed check [facility]FT[facility] Carly Jackson MD [facility] History of Present illness Narrative 11-05-2024 Carly Jackson MD - 11/05/2024 7:50 AM EST Note Date & Type Note Facility 11-05-2024 History of Presen t illness Narrative Technical Writer offered: accepted/Juan Zaidi is a 49 year [...] Ectopic0 Multiple0 Live Births0 Comment: Vaginal deliveries Enterprise Systems Architect History LMP: 09/27/2023, Having periods Age at Menarche: 15 Age at First : 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 As applicable, any other physician, advance practice provider, medical student, or other health professional student that will be observing or involved in the sensitive examination for educational or training purposes was discussed with the Patient or Authorized Display Screen Fabricator. The Patient or Authorized Display Screen Fabricator has agreed to proceed with the sensitive [...] external genitalia normal, normal Bartholin's glands, urethra, Bally's glands, no vulvar lesions, no cervical lesions, [...] Carly Jackson MD documented in this encounter [facility] History of Present illness Narrative 11-09-2023 Karyn Arriaza APRN.CNM - 11/09/2023 11:19 AM EST Note Date & Type Note Facility 11-09-2023 History of Presen t illness Narrative Patient here today for repeat PAP only due to insufficient sample. Karyn Arriaza APRN.CNM documented in this encounter [facility] History of Past illness Narrative 07-21-2003 Note Date & Type Note Facility 07-21-2003 History of Past i llness Narrative Problem Noted Date Diagnosed Date Resolved Date Unspecified hemorrhage in ea rly , antepartum 07/21/2003 09/08/2003 THREATEN ABORT-ANTEPART, at 8 weeks 12/30/2002 06/09/2003 Unspecified high-risk 12/02/2002 09/08/2003 documented as of this encounter (statuses as of 11/09/2023) [facility] Evaluation note Note Date & Type Note Facility Evaluation note No assessment information [facility] Work Phone: Evaluation note Note Date & Type Note Facility Evaluation note Diagnosis Cervical cancer screening- Primary Screening for malignant neoplasm of the cervix documented in this encounter [facility] Evaluation note Note Date & Type Note Facility Evaluation note Diagnosis Encounter for gynecological examination (general) (routine) without abnormal findings- Primary Encounter for screening mammogram for breast cancer Encounter for screening for cervical cancer Hormone replacement therapy (postmenopausal) Need for prophylactic hormone replacement therapy (postmenopausal) documented in this encounter [facility] Reason for referral (narrative) Diagnostic Procedure Only [...] Carly Dorman MD [address] [place] [address] [facility] [address] [place] [address] Referral ID Status Reason Start Date Expiration Date Visits Requested Visits Authorized [id number] New Request Auto-Generat ed Referral 11/05/2024 12/05/2025 1 1 [facility] Reason for referral (narrative) Note Date & Type Note Facility Reason for referral (narrative) No reason for referral information available [facility] Work Phone: Chief Complaint and Reason for [...] Activ e SALLIE Antunez Attending Provider Active Police Captain Senior Relationship Specialty Start Date End Date Margy Castillo MD [address] [place] [address] PCP - General Family Medicine 01/29/19 Police Captain Senior Relationship Specialty Start Date End Date Margy Castillo MD [address] [place] [address] PCP - General Family Medicine 01/29/19 Team [...] or prosecute any alcohol or drug abuse patient.[facility] the event this information is protected by the Federal Confidentiality of Alcohol and Drug Abuse Patient Records regulations: The Federal rules restrict any use of the information to criminally investigate or prosecute any alcohol or drug abuse patient.[facility] the event this information is protected by the Federal Confidentiality of Alcohol and Drug Abuse Patient Records regulations: The Federal rules restrict any use of the information to criminally investigate or prosecute any alcohol or drug abuse patient.[facility] Reason for Visit (unrecogniz ed section and content) Reason Comments [facility] INFORMATION SOURCE (unrecogn ized section and content) DATE CREATED AUTHOR 11/14/2024 [facility] DATE CREATED AUTHOR AUTHOR'S ORGANIZ ATION 02/19/2025 [facility] FOR RECORDS PERTAINING TO PATIENTS WHO ARE [...] BE BASED ON THE PRIMARY CLINICAL RECORDS. [employer] [facility]. provides no warranty or guarantee of the accuracy or completeness of information in this document.
[2025-05-14 08:49] LABS: AST(SGOT) 39 U/L (<=31); Alanine Aminotransfer ALT/SGPT 26 U/L (<=34); Albumin, Serum 4.2 g/dL (3.5-5.0); Alkaline Phosphatase 72 U/L (35-104); Bilirubin, Direct 0.18 mg/dL (0.00-0.30); Globulin 3.0 g/dL (2.2-4.2)
== END | disposition home or self-care (01) ==
LOC: LAB 06:59
PROVIDERS: PCP Family Medicine; Referring Provider Psychiatry & Neurology Neurology; Visit Provider Psychiatry & Neurology Neurology
DX: R74.8 Abnormal levels of other serum enzymes (principal)
CPT/HCPCS: 36415; 80076

== ENCOUNTER → 2025-06-25 | Outpatient (CLI) | payer OTHER, SELFPAY ==
[2025-06-25 17:39] LABS: Mucous, Urine 0 SEEN /hpf (<or=2+)
[2025-06-25 18:03] LABS: Color, Urine Yellow (Yellow); Glucose, Dipstick Normal (Normal); Ketone-Dipstick 5 mg/dl (Negative); Leukocyte Esterase-Dipstick 25 /ul (Negative); Nitrite-Dipstick Negative (Negative); Occult Blood-Urine 150 /ul (Negative); Protein-Dipstick 30 mg/dl (Negative); Specific Gravity, Urine 1.025 (1.002-1.030); Urine Bilirubin Dipstick Negative (Negative)
[2025-06-25 18:58] LABS: Red Blood Cells-Urine 5-10 SEEN /hpf (0-5)
[2025-06-25 18:59] LABS: Squamous Epithelial Cells - UA 5-10 SEEN /hpf (5-10)
== END | disposition home or self-care (01) ==
LOC: LABSPEC 17:37
PROVIDERS: PCP Family Medicine; Visit Provider Family Medicine
DX: R31.29 Other microscopic hematuria (principal)
CPT/HCPCS: 81001; 87086; 87088

== ENCOUNTER → 2025-08-06 | Outpatient (CLI) | payer OTHER, SELFPAY ==
--- NOTE | 2025-08-06 18:59 | CA.SCORE ---
Calcium Scoring Date of Study:: 08/06/25 Indications Indications: HLD Coronary Calcium Scoring: High-resolution Computed Tomographic imaging of the chest was performed on [08/06/25 ], with particular attention paid to the coronary arteries. Images from the examination were analyzed for the presence and extent of coronary artery calcification , using coronary calcium quantification software. The patient tolerated the procedure well and there were no complications. The results of the coronary calcification analysis are provided below. Findings Coronary Artery Left Main (LM): 0 Left Anterior Descending (LAD): 0 Left Circumflex (LCX): 0 Right Coronary Artery (RCA): 0 Total Agatston Score: 0 Percentile Rankin Calcium Scoring Interpretation: Different methods to categorize the overall amount of coronary plaque. Overall amount CAC SIS Visual of coronary plaque P1 Mild -100 <2 1-2 vessels with mild amount of plaque P2 Moderate 101-300 3-4 1-2 vessels with moderate amount, 3 vessels with mild amount of plaque P3 Severe 301-999 5-7 3 vessels with moderate amount, 1 vessel with severe amount of plaque P4 Extensive >1000 >8 2-3 vessels with severe amount of plaque Conclusion: No atherosclerotic plaquing noted
== END | disposition home or self-care (01) ==
LOC: CT 14:59
PROVIDERS: PCP Family Medicine; Referring Provider Family Medicine; Visit Provider Family Medicine
DX: E78.5 Hyperlipidemia, unspecified (principal)
CPT/HCPCS: 75571; 76380

== ENCOUNTER 2025-09-16 11:03 | Day surgery (SDC) | payer OTHER, SELFPAY ==
--- NOTE | 2025-09-15 13:45 | HP.PCM_ITS ---
[facility] - General General Date of Service: 09/16/25 HPI Narrative AVINASH WILLSON, is a 49 F who presents for screening colonoscopy. Patient never had previous colonoscopy. Patient has bowel movements daily has occasional bright red blood with wiping. Patient denies any chronic abdominal pain/nausea/vomiting/reflux. Patient's mom did have polyps which were benign denies any family history of colon cancer. PFSH Medical History Occasional tremors Post-menopausal Wears glasses High cholesterol Seizures History of hiatal hernia Heartburn Gastric reflux Non-smoker Home Medications ?Medication ?Instructions ?Recorded ?Last Taken ?Type divalproex 250 mg tablet,extended 250 mg PO QHS 09/15/25 History release 24 hr divalproex 500 mg tablet,extended 1,000 mg PO QHS 06/0109/15/25 History release 24 hr pantoprazole 40 mg tablet,delayed 40 mg PO DAILY 09/1409/15/25 History release propranolol 60 mg capsule,24 60 mg PO DAILY 09/14/25 1 11/16/24 History hr,extended release Allergy/AdvReac Type Severity Reaction Status Date / Time No Known Allergies Allergy Verified 09/16/25 11:18 Surgical History History of wisdom tooth extraction Social History Smoking Status: Never smoker Past Medical/Surgical History Planned Operation Planned Operative Procedure(s): CSCOPE Previous Hospitalizations/Surgeries HX Hospitalizations: No Any Problems With Anesthesia: No You/Your Family Experience Fever (Hyperthermia) With Anes: No Cholinesterase deficiency: No Cardiovascular Hx Heart Attack: No Hx Hypertension: No Respiratory Hx Chronic Obstructive Pulmonary Disease (COPD): No Hx Asthma: No Hx Emphysema: No Hx Sleep Apnea: No Hx Respiratory Tract Infection/Cold (presently): No Do You Snore Loudly (louder than talking or can be heard): No Do You Often Feel Tired/ Fatigued/ Sleepy Dring Daytime?: No Has Anyone Observed You Stop Breathing During Sleep?: No Result (for STOP score): Negative Smoking Status: Never smoker Neurological Hx Seizures: Yes Does patient have nerve stimulator: No Reproduction : No Allergies No Known Allergies Allergy (Verified 12/10/25 11:18) Discharge Is Pt Admitted From a Alf, or a Half-Way: No After D/C, Where Do you Plan to Go: Return Home Physical Exam Const alert, oriented x3 and no apparent distress HEENT normocephalic and head/scalp atraumatic Resp normal respiratory effort Cardio regular rate GI soft to palpation and non-tender; Negative for non-distended Palpation: Negative for guarding Extremity no clubbing, cyanosis or edema Skin no rashes or lesions noted Neuro CN's II-XII intact bilaterally Psych mental status grossly normal Assessment & Plan Assessment/Plan (1) Screening for colon cancer: Surgery Risks - Colonoscopy I discussed with the patient the risks of the procedure: Yes Risks Include but are not Limited To: Risks include but are not limited to: Bleeding, perforation requiring further surgery, inability to complete colonoscopy requiring barium enema.
[2025-09-16] VITALS (8 sets, daily range): BP systolic 111–155; BP diastolic 56–81; PULSE 57–86; RESP 16–18; TEMP 36.1; O2SAT 94–98; BMI 28.8
[2025-09-16] MEDS: Lactated Ringers 1,000 ML 15 ML IV (11:27)
--- NOTE | 2025-09-16 11:48 | PCM.PRE.AN2 ---
ASA Classification* ASA Classification ASA Classification: 2 Assessment & Plan Anesthesia* Anesthesia Assessment Anesthesia Assessment: Discussed sedation and/or anesthesia options, risks, benefits, and alternatives with patient/parents/legal guardian/POA. Questions invited. The patient/parents/legal guardian/POA seems to understand and agrees to proceed with anesthesia plan. Reviewed the physical assessment, medical history, allergy history and patient home medications list prior to surgery/procedure/anesthetic and documented any changes. Performed airway and anesthesia risk assessments. Anesthesia Type Anesthesia Type: MAC History Source History Obtained from:: Patient and Chart Anesthesia Focused Assessment* Temperature: 97 F Pulse Rate: 86 Blood Pressure: 155/81 Respiratory Rate: 16 Pulse Ox: 98 Oxygen Delivery Method: Room Air Airway Assessment Mouth opens: >3 cm Mallampati Score: II Teeth Condition: Intact Labs Anesthesia Preop lab: CBC WBC, (4.4-11.0) 7.0 K/mm3 02/12/25, 07: RBC, (4.2-5.4) 4.78 M/mm3 02/12/25, 07:26 Hgb, (12.0-15.0) 10.8 g/dL L 02/12/25, 07:26 Hct, (37-47) 35.6 % L 02/12/25, 07:26 Plt Count, (150-450) 324 K/mm3 02/12/25, 07:26 CHEMISTRY Potassium, (3.3-5.1) 4.1 mmol/L 02/12/25, 07:26 Sodium, (133-145) 141 mmol/L 02/12/25, 07:26 BUN, (4-19) 10 mg/dL 02/12/25, 07:26 Creatinine, (0.70-1.20) 0.56 mg/dL L 02/12/25, 07:26 Glucose, (70-99) 161 mg/dL H 02/12/25, 07:26 COAG Pre-Assessment Diagnosis/Proposed Procedure Planned Operative Procedure(s): CSCOPE Anesthesia History Anesthesia History - communications consultant: Anesthesia History - communications consultant Hx Hospitalization No 09/15/25 13:46 Any Problems With Anesthesia No 09/15/25 13:46 Cholinesterase deficiency No 09/15/25 13:46 You/Your Family Experience No 09/15/25 13:46 fever (hyperthermia) with Relationship Recent Exposure to Contagious No 09/16/25 11:19 Disease Does patient have nerve No 09/15/25 13:46 stimulator Patient instructed to have device shut off --Does patient have Pacemaker No 09/16/25 11:19 or ICD? When Was Last Pacemaker Check QUESTION #4 FULL TEXT: You/Your Family Experience fever (hyperthermia) with Anesthesia Last Oral Intake Last Oral intake: Last Oral Intake NPO since 00:00 09/16/25 11:19 Meds taken in AM with sips of No 09/16/25 11:19 water? Meds patient instructed to take am of surgery PONV PONV - communications consultant: PONV - communications consultant Female Yes 09/14/25 15:40 HX of Motion Sickness No 09/14/25 15:40 HX of N/V After Surgery No 09/14/25 15:40 Non-Smoker Yes 09/14/25 15:40 Duration of Surgery greater No 09/14/25 15:40 than 60 minutes Number of Risk Factors 2 09/14/25 15:40 PONV Score Moderate Risk 09/14/25 15:40 Height & Weight Height & Weight: Anesthesia: Height & Weight Height 5 ft 4.75 in 09/16/25 11:19 Weight: 78 kg 09/16/25 11:19 Body Mass Index (BMI) 28.8 09/16/25 11:19 Respiratory Assessment Respiratory Assessment - communications consultant: Respiratory Tract Infection Hx - communications consultant Hx Respiratory Tract Infection No 09/15/25 13:46 STOP Sleep Apnea STOP Sleep Apnea - communications consultant: STOP Sleep Apnea - communications consultant Hx Hypertension No 09/15/25 13:46 Hx Sleep Apnea No 09/15/25 13:46 CPAP BIPAP Do you snore loudly (louder No 09/15/25 13:46 than talking or can be heard Do you often feel tired/ No 09/15/25 13:46 fatigued/ sleepy during daytime? Has anyone observed you stop No 09/15/25 13:46 breathing during sleep? STOP Results Negative 09/15/25 13:46 QUESTION #5 FULL TEXT : Do you snore loudly (louder than talking or can be heard through closed doors)? Tobacco Use History Tobacco Use History - communications consultant: Tobacco Use History - communications consultant Tobacco Use Smoking Status Never smoker 09/15/25 13:46 Hx Tobacco Use No 09/14/25 15:40 Years Smoking Packs Smoked per Day Smoking Cessation Date was within the last 15 years Hx Smoking Cessation Date Hx Smoking Cessation Counseling Hematologic Medial History Hematologic Hx - communications consultant: Hematologic Medical Hx - last pattern grader Hx of Blood Transfusion No 09/14/25 15:40 Hx of Transfusion in last 3 No 09/14/25 15:40 Months Date of Last Transfusion (if within last 3 months) Ever experience any problems No 09/14/25 15:40 with transfusion(s)? Specify any problems Hx of Preganancy in last 3 N/A 09/14/25 15:40 Months Nurse Filling Out Transfusion NBUCHER 09/14/25 15:40 & Questions: Date: 09/14/25 09/14/25 15:40 Time: 15:40 09/14/25 15:40 Patient unable to answer at this time (ie. confused, unrespo /Reproduction History /Reproductive History - communications consultant: /Reproductive Hx- communications consultant Hx Now No 09/15/25 13:46 Gestational Age (in weeks): EDC: Hx Hx Para Hx Section SAB No 09/14/25 15:40 Does the father of the baby or his family experience fever w Father of the baby Malignant Hypertension history comment Active Medications Active Medications: Current Medications Generic Name Dose Route Start Last Admin Trade Name Freq PRN Reason Stop Dose Admin Lactated Ringer's 1,000 mls @ 15 mls/hr 09/16/25 11:15 09/16/25 11:27 IV 15 mls/hr .Q48H DESIRAE Administration PFSH Medical History Occasional tremors Post-menopausal Wears glasses High cholesterol Seizures History of hiatal hernia Heartburn Gastric reflux Non-smoker Home Medications ?Medication ?Instructions ?Recorded ?Last Taken ?Type divalproex 250 mg tablet,extended 250 mg PO QHS 09/14/25 09/15/25 History release 24 hr divalproex 500 mg tablet,extended 1,000 mg PO QHS 09/14/25 09/15/25 History release 24 hr pantoprazole 40 mg tablet,delayed 40 mg PO DAILY 09/14/25 09/15/25 History release propranolol 60 mg capsule,24 60 mg PO DAILY 09/14/25 09/15/25 History hr,extended release Allergy/AdvReac Type Severity Reaction Status Date / Time No Known Allergies Allergy Verified 09/16/25 11:18 Surgical History History of wisdom tooth extraction Social History Smoking Status: Never smoker Addt'l Information Additional Findings: > 4 Mets. Last Seizure in 2005 Review of Systems (Anesthesia) ROS Narrative System reviewed and no additional complaints, except as documented. Physical Exam Const alert, oriented x3 and average body habitus HEENT dentition normal Neck full ROM General: normal visual inspection Resp normal respiratory effort, normal air movement and clear to auscultation bilaterally Cardio regular rate and regular rhythm Back/Spine normal ROM Skin Rashes: no rashes Neuro oriented x3 and moves all extremities
--- NOTE | 2025-09-16 12:30 | COLBX_PTH ---
PATIENT: AVINASH WILLSON LOC: EN U#:[id number] AGE/SX: 49/F ROOM: RE09/16/[address]: Dr. Moira Dasilva MD : 1975 BED: DIS: 09/16/2025 SPEC #: [id number] RECD: 09/16/25 14:35 STATUS: YUMIKO REQ #: [id number] URIEL: 09/16/25 12:[address]: Moira Dasilva DEPT: SURGICAL PATHOLOGY RECD BY: Fredy Lr ENTERED: 09/16/25 15:29 SP TYPE: COLON BX WALTER DR: Dr. Rakesh Castillo MD Tissues: A - Ascending colon B - Transverse colon Procedures: Surgery Specimen Level IV HEADER OPERATION: Colonoscopy with polypectomy PRE-OP DIAGNOSIS: Screening for colon cancer TISSUE SUBMITTED: A- Ascending colon polyp, B- Transverse colon polyp x2 MICROSCOPIC DIAGNOSIS A. Colon, ascending, polyp, polypectomy: - Sessile serrated lesion. - Submucosal adipose consistent with submucosal lipoma. B. Colon, transverse, polyp x2, polypectomy: - Sessile serrated lesion, multiple fragments. MICROSCOPIC DESCRIPTION Slides are reviewed. GROSS DESCRIPTION A. Received in fixative is one container labeled with the patient's name and designated Ascending colon polyp. The specimen consists of a 0.9 x 0.5 x 0.1 cm aggregate of milan-pink tissue fragments and a 0.9 x 0.7 x 0.3 cm sessile polyp. The resection margin of the polyp is inked black and it is serially sectioned. Entirely submitted in 1 cassette. B. Received in fixative is one container labeled with the patient's name and designated Transverse colon polyp x2. The specimen consists of multiple irregular fragments of mlian tissue that in aggregate measure 1.4 x 0.9 x 0.1 cm, admixed flocculent material. The specimen is totally submitted in one cassette. RI 09/16/2025 CPT:37862i5
--- NOTE | 2025-09-16 14:32 | OP.PROVAT_ITS ---
09/16/2025 Tae Castillo [address] [place] [address] Re : Colonoscopy procedure for Dyan Menjivar Dear Dr. Castillo This procedure was performed on Tuesday, September 16, 2025. My impressions and recommendations are as follows: Impressions : - Three 3 to 7 mm polyps in the transverse colon and in the ascending colon, removed with a hot snare. Resected and retrieved. - One less than 5 mm polyp in the rectum, removed with a hot snare. Complete resection. Polyp tissue not retrieved. - The examination was otherwise normal on direct and retroflexion views. Recommendations : - Discharge patient to home. - Resume previous diet. - Continue present medications. - Await pathology results. - Repeat colonoscopy in 5 years for surveillance based on pathology results. My findings are described in the full procedure note, which is enclosed. If I can be of further assistance, please feel free to contact me at Doctor phone number(s): , Work: . Sincerely, MD Moira Hdez MD 09/16/2025 2:31:32 PM This report has been signed electronically.
--- NOTE | 2025-09-16 14:32 | OP.COLON_ITS ---
Patient Name: Dyan Menjivar Procedure Date: 09/16/2025 1:43 PM Date of : 1975 Age: 49 Procedure: Colonoscopy Indications: Screening for colorectal malignant neoplasm Providers: Moira Dasilva MD Referring MD: Tae Castillo Medicines: Monitored Anesthesia Care Patient Profile: This is a 49 year old female. Last Colonoscopy: none. The patient's first colonoscopy is today. Complications: No immediate complications. Procedure: Pre-Anesthesia Assessment: - Prior to the procedure, a History and Physical was performed, and patient medications and allergies were reviewed. The patient's tolerance of previous anesthesia was also reviewed. The risks and benefits of the procedure and the sedation options and risks were discussed with the patient. All questions were answered, and informed consent was obtained. Prior Anticoagulants: The patient has taken no anticoagulant or antiplatelet agents. ASA Grade Assessment: Per anesthesia. After reviewing the risks and benefits, the patient was deemed in satisfactory condition to undergo the procedure. After I obtained informed consent, the scope was passed under direct vision. Throughout the procedure, the patient's blood pressure, pulse, and oxygen saturations were monitored continuously. The Colonoscope was introduced through the anus and advanced to the cecum, identified by the appendiceal orifice, ileocecal valve and palpation. The colonoscopy was performed without difficulty. The patient tolerated the procedure well. The quality of the bowel preparation was good. Scope In: 1:52:02 PM Scope Withdrawal Time 0 hours 26 minutes 31 seconds Scope Out: 2:24:52 PM Total Procedure Duration Time 0 hours 32 minutes 50 seconds Findings: The perianal and digital rectal examinations were normal. Three semi-sessile polyps were found in the transverse colon and ascending colon. The polyps were 3 to 7 mm in size. These polyps were removed with a hot snare. Resection and retrieval were complete. A less than 5 mm polyp was found in the rectum. The polyp was semi-sessile. The polyp was removed with a hot snare. Resection was complete, but the polyp tissue was not retrieved. The exam was otherwise without abnormality on direct and retroflexion views. Impression: - Three 3 to 7 mm polyps in the transverse colon and in the ascending colon, removed with a hot snare. Resected and retrieved. - One less than 5 mm polyp in the rectum, removed with a hot snare. Complete resection. Polyp tissue not retrieved. - The examination was otherwise normal on direct and retroflexion views. Recommendation: - Discharge patient to home. - Resume previous diet. - Continue present medications. - Await pathology results. - Repeat colonoscopy in 5 years for surveillance based on pathology results. Procedure Code(s): --- Professional --- 52909, PT, Colonoscopy, flexible; with removal of tumor(s), polyp(s), or other lesion(s) by snare technique Diagnosis Code(s): --- Professional --- Z12.11, Encounter for screening for malignant neoplasm of colon D12.3, Benign neoplasm of transverse colon (hepatic flexure or splenic flexure) D12.2, Benign neoplasm of ascending colon D12.8, Benign neoplasm of rectum CPT copyright 2021 [employer]. All rights reserved. The codes documented in this report are preliminary and upon healthcare translator review may be revised to meet current compliance requirements. MD Moira Hdez MD 09/16/2025 2:31:32 PM This report has been signed electronically. Number of Addenda: 0 Note Initiated On: 09/16/2025 1:43 PM
--- NOTE | 2025-09-16 14:39 | PCM.POST.ANE ---
Anesthesia: Postop Eval I Current Vital Signs Temperature: 97 F Pulse Rate: 65 Blood Pressure: 118/56 Respiratory Rate: 16 Pulse Ox: 96 Oxygen Delivery Method: Room Air Assessment Airway patent: Yes Spontaneous unlabored respirations: Yes Mental status: Asleep nausea: No Vomiting: No Anesthesia Complication: No Fluid Hydration Crystalloid volume administer (ml): 900 Total IV fluid infused: 900 Progress Note Anesthesia document: Postop Eval 1 completed: Yes
--- NOTE | 2025-09-16 17:41 | PCM.POSTANE2 ---
Anesthesia Postop Eval I Sum Postop Eval Completion status Anesthesia document: Postop Eval 1 completed: Yes Anesthesia Postop Eval I Summary Anesthesia Postop Eval I Summary: Anesthesia Postop Eval I: Assessment Summary Airway patent Yes 09/16/25 14:40 [email or web address] Spontaneous unlabored Yes 09/16/25 14:40 [email or web address] respirations Mental status Asleep 09/16/25 14:40 [email or web address] nausea No 09/16/25 14:40 [email or web address] Vomiting No 09/16/25 14:40 [email or web address] Anesthesia Postop Eval I: Fluid Summary Crystalloid volume administer 900 09/16/25 14:40 [email or web address] (ml) Colloids volume administered ( ml) Blood Product volume administered (ml) Total IV fluid infused 900 09/16/25 14:40 [email or web address] Anesthesia Postop Eval I: Summary Notes Anesthesia Complication No 09/16/25 14:40 [email or web address] Anesthesia Complication Comment: Post-operative progress note Anesthesia: Postop Eval II Evaluation Mental status: Awake and Calm Pain Level: 0 nausea: No Vomiting: No Complications Anesthesia Complication: No
== END 2025-09-16 15:19 | disposition home or self-care (01) ==
LOC: EN 11:04 → AC 11:06
PROVIDERS: PCP Family Medicine; Referring Provider Family Medicine; Visit Provider Surgery
PROC: 0DJD8ZZ Inspection of Lower Intestinal Tract, Via Natural or Artificial Opening Endoscopic (ICD-10-PCS; CPT 45378; principal; 2025-09-16 12:25)
DX: Z12.11 Encounter for screening for malignant neoplasm of colon (principal); D12.2 Benign neoplasm of ascending colon; E78.00 Pure hypercholesterolemia, unspecified; K21.9 Gastro-esophageal reflux disease without esophagitis; Z79.899 Other long term (current) drug therapy; D12.3 Benign neoplasm of transverse colon
CPT/HCPCS: 45385; 88305; J2405